=== PATIENT | male | born 1960 | race African-American/Black ===

== ENCOUNTER 2018-03-21 12:28 | Emergency (ER) | payer MEDICAID ==
[~2018-03-21] VITALS: Ht 180.3 cm; Wt 86.0 kg
[~2018-03-21 12:28] MED LIST: ALLO100T PO; DOCU-138 PO; FESO4; FOLI-43 PO; METF10004 PO; MULT-1146 PO; PRED1DRO RIGHTEYE; PREG100C PO; VENL75CA55 PO; VIT B1
[2018-03-21] MEDS ORDERED: SODIUM CHLORIDE 0.9% 500 ML IV ONE ×2 (13:30→15:15)
[2018-03-21 14:02] LABS: BASOPHILS % 1.2 % (0.0-2.0); HEMATOCRIT. 31.2 % (42.0-52.0); HEMOGLOBIN. 10.3 g/dL (14.0-18.0); LYMPHOCYTES % 23.7 % (20.0-50.0); MEAN CORPUSCULAR HEMOGLOBIN 29.1 pg (28.0-32.0); MEAN CORPUSCULAR VOLUME 88.3 fL (80.0-94.0); MEAN PLATELET VOLUME 8.5 fl (7.4-10.4); MONOCYTES % 9.2 % (2.0-8.0); NEUTROPHILS % 57.9 % (40.0-76.0); PLATELET 215 x1000/uL (130-400); RED BLOOD CELL COUNT 3.53 mill/uL (4.7-6.1); RED CELL DISTRIBUTION WIDTH 16.9 % (11.6-14.6)
[2018-03-21 14:06] LABS: CHLORIDE 111 mEq/L (98-107); PROTHROMBIN TIME 10.1 sec (9.4-11.6)
[2018-03-21 14:57] LABS: *BENZODIAZEPINES SCREEN URINE NEGATIVE (NEGATIVE); *COCAINE SCREEN URINE NEGATIVE (NEGATIVE); METHADONE URINE SCREEN NEGATIVE (NEGATIVE); OPIATES URINE SCREEN PRESUMTIVE POSITIVE (NEGATIVE)
[2018-03-21 14:58] LABS: *AMPHETAMINES SCREEN URINE NEGATIVE (NEGATIVE); *BARBITURATES SCREEN URINE NEGATIVE (NEGATIVE); CANNABINOID URINE SCREEN NEGATIVE (NEGATIVE); PHENCYCLIDINE URINE SCREEN NEGATIVE (NEGATIVE)
[2018-03-21 17:10] VITALS: BP 151/67
== END 2018-03-21 17:21 | disposition home or self-care (01) ==
LOC: ER 13:00
DX: E86.0 Dehydration (principal); N17.9 Acute kidney failure, unspecified; D64.9 Anemia, unspecified; I11.0 Hypertensive heart disease with heart failure; I50.9 Heart failure, unspecified; E11.9 Type 2 diabetes mellitus without complications; D72.819 Decreased white blood cell count, unspecified; Z79.84 Long term (current) use of oral hypoglycemic drugs
CPT/HCPCS: 36415; 71045; 80048; 80305; 83880; 84484; 85025; 85610; 93005; 96360; 96361; 99285; J7040; Z7610

== ENCOUNTER 2018-06-14 22:59 | Inpatient (IN) | payer MEDICAID ==
[~2018-06-14] VITALS: Ht 180.3 cm; Wt 88.5 kg
[2018-06-14] MEDS ORDERED: ALBUTEROL (0.083%) 2.5MG/3ML NEB HHN STA (23:30)
[2018-06-14] MEDS ORDERED: IPRATROPIUM BROMIDE (0.02%) 0.5MG/2.5ML NEB HHN STA (23:30)
[2018-06-14] MEDS ORDERED: ASPIRIN 81MG TABLET PO ONE (23:30)
[2018-06-14 23:58] LABS: BASOPHILS % 1.6 % (0.0-2.0); EOSINOPHILS % 4.8 % (0.0-5.0); HEMATOCRIT. 31.8 % (42.0-52.0); HEMOGLOBIN. 10.7 g/dL (14.0-18.0); LYMPHOCYTES % 19.5 % (20.0-50.0); MEAN CORPUSCULAR HEMOGLOBIN 30.8 pg (28.0-32.0); MEAN CORPUSCULAR VOLUME 91.6 fL (80.0-94.0); MEAN PLATELET VOLUME 8.8 fl (7.4-10.4); NEUTROPHILS % 66.1 % (40.0-76.0); PLATELET 178 x1000/uL (130-400); RED BLOOD CELL COUNT 3.47 mill/uL (4.7-6.1); RED CELL DISTRIBUTION WIDTH 17.4 % (11.6-14.6)
[2018-06-15 00:08] LABS: INR 0.9; PARTIAL THROMBOPLASTIN TIME 30.1 sec (23.4-31.0); PROTHROMBIN TIME 9.3 sec (9.1-11.1)
[2018-06-15 00:15] LABS: CHLORIDE 111 mEq/L (98-107)
[2018-06-15 00:20] LABS: ETHANOL BLOOD 125 mg/dL
[2018-06-15 00:36] LABS: CLARITY URINE CLEAR (CLEAR); COLOR URINE YELLOW (YELLOW); KETONES URINE NEGATIVE (NEGATIVE); LEUKOCYTE ESTERASE URINE NEGATIVE (NEGATIVE); NITRITE URINE NEGATIVE (NEGATIVE); OCCULT BLOOD URINE NEGATIVE (NEGATIVE); PROTEIN URINE 3+ (NEGATIVE); SPECIFIC GRAVITY URINE 1.011 (1.005-1.030); UROBILINOGEN URINE 0.2 E.U./dL (0.2-1.0)
[2018-06-15] MEDS ORDERED: SODIUM CHLORIDE 0.9% 1000ML BAG (SEPSIS BOLUS) IV ONE (01:00)
[2018-06-15] MEDS ORDERED: METHYLPREDNISOLONE SOD SUCC 125 MG/2 ML VIAL IV ONE (01:00)
[2018-06-15 01:07] LABS: *AMPHETAMINES SCREEN URINE NEGATIVE (NEGATIVE); *BARBITURATES SCREEN URINE NEGATIVE (NEGATIVE); CANNABINOID URINE SCREEN NEGATIVE (NEGATIVE); METHADONE URINE SCREEN NEGATIVE (NEGATIVE); OPIATES URINE SCREEN NEGATIVE (NEGATIVE); PHENCYCLIDINE URINE SCREEN NEGATIVE (NEGATIVE)
[2018-06-15 01:08] LABS: *BENZODIAZEPINES SCREEN URINE NEGATIVE (NEGATIVE); *COCAINE SCREEN URINE NEGATIVE (NEGATIVE)
[2018-06-15] MEDS ORDERED: CALCIUM GLUCONATE 100MG/ML 10ML VIAL IV ONE (01:15)
[2018-06-15] MEDS ORDERED: ACETAMINOPHEN 500MG TABLET PO ONE (01:30)
[2018-06-15] MEDS ORDERED: KETOROLAC 30MG/ML VIAL IV ONE (02:45)
[2018-06-15] MEDS: CALCIUM GLUCONATE 1,000 MG in DEXTROSE 5% WATER 50 ML IV SCH ×2 (03:00→05:56)
[2018-06-15 06:40] VITALS: BP 128/65
[2018-06-15 08:00] VITALS: BP 133/73
[2018-06-15] MEDS ORDERED: LOSA100T14 PO (08:54)
[2018-06-15] MEDS ORDERED: METO25TA6 PO (08:54)
[2018-06-15] MEDS ORDERED: ASPI-1158 PO (08:54)
[2018-06-15] MEDS ORDERED: HYDR-4135 PO (08:54)
[2018-06-15] MEDS ORDERED: PREG75CA PO (08:54)
[2018-06-15] MEDS ORDERED: NIFE30TA83 PO (08:54)
[2018-06-15] MEDS ORDERED: METF500T6 PO (08:54)
[2018-06-15] MEDS ORDERED: ACETAMINOPHEN 650MG/20.3ML UDC GT PRN (09:30)
[2018-06-15] MEDS ORDERED: ONDANSETRON HCL 4MG/2ML INJ IV PRN (09:30)
[2018-06-15] MEDS ORDERED: ACETAMINOPHEN 325MG TABLET PO PRN (09:30)
[2018-06-15] MEDS ORDERED: ACETAMINOPHEN 650MG SUPP PR PRN (09:30)
[2018-06-15] MEDS ORDERED: MAGNESIUM/ALUMINUM HYDROXIDE/SIMETHICONE 30ML UDC PO PRN (09:30)
[2018-06-15] MEDS: HYDROCODONE/ACETAMINOPHEN 10/325MG TABLET PO PRN ×2 (10:15→20:13)
[2018-06-15 12:00] VITALS: BP 167/58
[2018-06-15 12:40] LABS: CREATINE KINASE 510 IU/L (39-308)
[2018-06-15 12:45] LABS: CREATINE KINASE MB FRACTION 7.2 ng/mL (0.5-3.6)
[2018-06-15 12:49] LABS: FOLIC ACID (FOLATE) SERUM >20 ng/mL ng/mL (>5.38)
[2018-06-15 13:00] LABS: VITAMIN B12 SERUM 1179 pg/mL (211-911)
[2018-06-15] MEDS ORDERED: LOSARTAN POTASSIUM 100 MG TABLET PO SCH (13:30)
[2018-06-15] MEDS ORDERED: IPRATROPIUM/ALBUTEROL 0.5-3(2.5)MG/3ML NEB HHN PRN (13:45)
[2018-06-15] MEDS: FOLIC ACID 1MG TABLET PO SCH (14:20)
[2018-06-15] MEDS: MULTIVITAMINS,THER W-MINERALS TABLET PO SCH (14:20)
[2018-06-15] MEDS: METOPROLOL TARTRATE 25MG TABLET PO SCH (14:21)
[2018-06-15] MEDS: NIFEDIPINE XL 30MG TAB PO SCH (14:21)
[2018-06-15] MEDS: HYDRALAZINE HCL 50MG TABLET PO SCH (14:22)
[2018-06-15] MEDS: NICOTINE 7MG PATCH TD SCH (14:22)
[2018-06-15] MEDS: ASPIRIN 81MG TABLET PO SCH (14:22)
[2018-06-15] MEDS: PREGABALIN 75MG CAPSULE PO SCH (14:22)
[2018-06-15] MEDS ORDERED: SODIUM BICARBONATE 8.4% 1 MEQ/ML 50ML SYR IV NR ×3 (14:30→18:00)
[2018-06-15 15:21] LABS: BG BASE EXCESS -15.3 mmol/L (-2.0-2.0); BG DEOXYHEMOGLOBIN 1.9 % (0.0-5.0); BG FRACTION INSPIRED OXYGEN 21; BG HCO3 ACT 10.5 mmol/L (22.0-26.0); BG METHEMOGLOBIN 0.3 % (0.0-1.5); BG OXYGEN SATURATION 98.1 % (92.0-98.5); BG OXYHEMOGLOBIN 97.8 % (94.0-97.0); BG PCO2 25.2 mmHg (35.0-45.0); BG PH 7.239 (7.350-7.450); BG PO2 119.2 mmHg (75.0-100.0); BG SAMPLE SITE RIGHT BRACHIAL; BG TOTAL HEMOGLOBIN 10.3 g/dL (12.0-18.0); BG VENT MODE ROOM AIR
[2018-06-15 16:00] VITALS: BP 148/69
[2018-06-15 16:37] LABS: BASOPHILS % 0.3 % (0.0-2.0); HEMATOCRIT. 30.6 % (42.0-52.0); HEMOGLOBIN. 10.1 g/dL (14.0-18.0); LYMPHOCYTES % 7.6 % (20.0-50.0); MEAN CORPUSCULAR HEMOGLOBIN 30.3 pg (28.0-32.0); MEAN CORPUSCULAR VOLUME 92.2 fL (80.0-94.0); MEAN PLATELET VOLUME 9.7 fl (7.4-10.4); MONOCYTES % 3.3 % (2.0-8.0); NEUTROPHILS % 88.8 % (40.0-76.0); PLATELET 156 x1000/uL (130-400); RED BLOOD CELL COUNT 3.31 mill/uL (4.7-6.1); RED CELL DISTRIBUTION WIDTH 17.1 % (11.6-14.6)
[2018-06-15] MEDS: CITRIC ACID/SODIUM CITRATE SOLN 30ML UDC PO SCH ×2 (16:41→16:52)
[2018-06-15] MEDS ORDERED: ALBUTEROL (0.5%) 2.5MG/0.5ML NEB HHN NR (17:45)
[2018-06-15] MEDS ORDERED: DEXTROSE 50% WATER 50ML SYRINGE IV NR (17:45)
[2018-06-15] MEDS ORDERED: FUROSEMIDE 40MG/4ML VIAL IVP NR (17:45)
[2018-06-15] MEDS ORDERED: SODIUM POLYSTYRENE SULFONATE 15 G/60 ML BOT PO NR (18:30)
[2018-06-15] MEDS ORDERED: INSULIN REGULAR (HUMULIN R) UD 100 UNITS/ML SYR IV NR (18:30)
[2018-06-15] MEDS: SODIUM BICARBONATE 150 MEQ in DEXTROSE 5% WATER 1,000 ML IV SCH (19:17)
[2018-06-15 20:00] VITALS: BP 153/63
[2018-06-15] MEDS ORDERED: DEXTROSE 50% WATER 50ML SYRINGE IV PRN (20:30)
[2018-06-15] MEDS: INSULIN LISPRO 100 UNITS/ML SUBCUT SCH (21:00)
[2018-06-15] MEDS: BLOOD SUGAR DIAGNOSTIC STRIP TEST SCH (21:51)
[2018-06-15] MEDS: HYDROCODONE/ACETAMINOPHEN 5/325MG TABLET PO PRN (22:38)
[2018-06-16] VITALS (8 sets, daily range): BP systolic 154–185; BP diastolic 71–91
[2018-06-16 00:50] LABS: CREATINE KINASE 403 IU/L (39-308)
[2018-06-16 00:51] LABS: CREATINE KINASE MB FRACTION 5.9 ng/mL (0.5-3.6)
[2018-06-16] MEDS ORDERED: SODIUM POLYSTYRENE SULFONATE 15 G/60 ML BOT PO NR (02:00)
[2018-06-16] MEDS: HYDROCODONE/ACETAMINOPHEN 10/325MG TABLET PO PRN ×4 (03:02→21:59)
[2018-06-16] MEDS: SODIUM BICARBONATE 150 MEQ in DEXTROSE 5% WATER 1,000 ML IV SCH ×2 (05:10→17:30)
[2018-06-16] MEDS: BLOOD SUGAR DIAGNOSTIC STRIP TEST SCH ×4 (05:11→20:38)
[2018-06-16] MEDS: HYDRALAZINE HCL 50MG TABLET PO SCH (06:49)
[2018-06-16] MEDS: INSULIN LISPRO 100 UNITS/ML SUBCUT SCH ×4 (08:10→20:38)
[2018-06-16] MEDS: MULTIVITAMINS,THER W-MINERALS TABLET PO SCH (08:27)
[2018-06-16] MEDS: NIFEDIPINE XL 30MG TAB PO SCH (08:27)
[2018-06-16] MEDS: ASPIRIN 81MG TABLET PO SCH (08:27)
[2018-06-16] MEDS: METOPROLOL TARTRATE 25MG TABLET PO SCH (08:27)
[2018-06-16] MEDS: PREGABALIN 75MG CAPSULE PO SCH (08:27)
[2018-06-16] MEDS: CITRIC ACID/SODIUM CITRATE SOLN 30ML UDC PO SCH ×3 (08:28→18:06)
[2018-06-16] MEDS: NICOTINE 7MG PATCH TD SCH (08:28)
[2018-06-16] MEDS: FOLIC ACID 1MG TABLET PO SCH (08:28)
[2018-06-16 08:38] LABS: BASOPHILS % 0.7 % (0.0-2.0); HEMATOCRIT. 26.7 % (42.0-52.0); HEMOGLOBIN. 8.9 g/dL (14.0-18.0); LYMPHOCYTES % 17.4 % (20.0-50.0); MEAN CORPUSCULAR HEMOGLOBIN 30.6 pg (28.0-32.0); MEAN CORPUSCULAR VOLUME 91.2 fL (80.0-94.0); MONOCYTES % 7.8 % (2.0-8.0); NEUTROPHILS % 72.1 % (40.0-76.0); PLATELET 149 x1000/uL (130-400); RED BLOOD CELL COUNT 2.93 mill/uL (4.7-6.1); RED CELL DISTRIBUTION WIDTH 16.7 % (11.6-14.6)
[2018-06-16 10:44] LABS: CHLORIDE 112 mEq/L (98-107)
[2018-06-16] MEDS ORDERED: CLONIDINE 0.1MG TABLET PO NR (10:54)
[2018-06-16 10:56] LABS: PHOSPHORUS 4.3 mg/dL (2.5-4.9)
[2018-06-16 10:57] LABS: LDL CHOLESTEROL 145 mg/dL (5-100)
[2018-06-16 10:59] LABS: HDL CHOLESTEROL 44 mg/dL (40-59)
[2018-06-16] MEDS: CLONIDINE 0.1MG TABLET PO SCH ×2 (15:08→21:58)
[2018-06-16] MEDS: ATORVASTATIN CALCIUM 40MG TABLET PO SCH (21:58)
[2018-06-17] VITALS (7 sets, daily range): BP systolic 155–185; BP diastolic 74–89
[2018-06-17] MEDS: HYDROCODONE/ACETAMINOPHEN 10/325MG TABLET PO PRN ×2 (03:49→20:08)
[2018-06-17] MEDS: SODIUM BICARBONATE 150 MEQ in DEXTROSE 5% WATER 1,000 ML IV SCH (04:56)
[2018-06-17] MEDS: CLONIDINE 0.1MG TABLET PO SCH ×3 (04:57→22:51)
[2018-06-17] MEDS: BLOOD SUGAR DIAGNOSTIC STRIP TEST SCH ×4 (06:46→21:00)
[2018-06-17 07:35] LABS: BASOPHILS % 1.3 % (0.0-2.0); EOSINOPHILS % 3.4 % (0.0-5.0); HEMATOCRIT. 26.4 % (42.0-52.0); HEMOGLOBIN. 9.1 g/dL (14.0-18.0); LYMPHOCYTES % 22.6 % (20.0-50.0); MEAN CORPUSCULAR VOLUME 90.2 fL (80.0-94.0); MEAN PLATELET VOLUME 9.7 fl (7.4-10.4); MONOCYTES % 8.4 % (2.0-8.0); NEUTROPHILS % 64.3 % (40.0-76.0); PLATELET 143 x1000/uL (130-400); RED BLOOD CELL COUNT 2.93 mill/uL (4.7-6.1)
[2018-06-17 07:36] LABS: CHLORIDE 107 mEq/L (98-107)
[2018-06-17 07:42] LABS: PHOSPHORUS 3.8 mg/dL (2.5-4.9)
[2018-06-17] MEDS: INSULIN LISPRO 100 UNITS/ML SUBCUT SCH ×4 (08:10→20:38)
[2018-06-17] MEDS: CITRIC ACID/SODIUM CITRATE SOLN 30ML UDC PO SCH ×3 (09:03→17:32)
[2018-06-17] MEDS: NIFEDIPINE XL 30MG TAB PO SCH (09:03)
[2018-06-17] MEDS: PREGABALIN 75MG CAPSULE PO SCH (09:03)
[2018-06-17] MEDS: MULTIVITAMINS,THER W-MINERALS TABLET PO SCH (09:03)
[2018-06-17] MEDS: FOLIC ACID 1MG TABLET PO SCH (09:03)
[2018-06-17] MEDS: ASPIRIN 81MG TABLET PO SCH (09:03)
[2018-06-17] MEDS: NICOTINE 7MG PATCH TD SCH (09:03)
[2018-06-17] MEDS: METOPROLOL TARTRATE 25MG TABLET PO SCH (09:03)
[2018-06-17] MEDS: HYDRALAZINE HCL 50MG TABLET PO SCH (09:03)
[2018-06-17] MEDS: HYDROCODONE/ACETAMINOPHEN 5/325MG TABLET PO PRN (11:46)
[2018-06-17] MEDS: PANTOPRAZOLE 40MG DR TABLET PO SCH (12:47)
[2018-06-17] MEDS ORDERED: MAGNESIUM 2 G PREMIX 50 ML IV NR (18:00)
[2018-06-17] MEDS: ATORVASTATIN CALCIUM 40MG TABLET PO SCH (22:51)
[2018-06-17] MEDS ORDERED: CLONIDINE 0.1MG TABLET PO PRN (23:15)
[2018-06-18] VITALS: BP 152/74
[2018-06-18] MEDS: ZOLPIDEM TARTRATE 5MG TABLET PO PRN ×2 (02:01→21:21)
[2018-06-18] MEDS: HYDROCODONE/ACETAMINOPHEN 10/325MG TABLET PO PRN ×3 (02:02→21:21)
[2018-06-18 04:00] VITALS: BP 148/72
[2018-06-18] MEDS: CLONIDINE 0.1MG TABLET PO SCH ×3 (06:15→21:20)
[2018-06-18] MEDS: BLOOD SUGAR DIAGNOSTIC STRIP TEST SCH ×4 (06:27→21:20)
[2018-06-18 07:33] LABS: BASOPHILS % 0.7 % (0.0-2.0); EOSINOPHILS % 3.7 % (0.0-5.0); HEMATOCRIT. 28.4 % (42.0-52.0); HEMOGLOBIN. 9.5 g/dL (14.0-18.0); LYMPHOCYTES % 16.3 % (20.0-50.0); MEAN CORPUSCULAR HEMOGLOBIN 30.4 pg (28.0-32.0); MEAN CORPUSCULAR VOLUME 90.9 fL (80.0-94.0); MEAN PLATELET VOLUME 9.7 fl (7.4-10.4); MONOCYTES % 9.9 % (2.0-8.0); NEUTROPHILS % 69.4 % (40.0-76.0); PLATELET 151 x1000/uL (130-400); RED BLOOD CELL COUNT 3.13 mill/uL (4.7-6.1); RED CELL DISTRIBUTION WIDTH 16.1 % (11.6-14.6)
[2018-06-18 08:00] VITALS: BP 148/75
[2018-06-18] MEDS: INSULIN LISPRO 100 UNITS/ML SUBCUT SCH ×4 (08:10→21:00)
[2018-06-18 08:16] LABS: PHOSPHORUS 3.5 mg/dL (2.5-4.9)
[2018-06-18] MEDS: NICOTINE 7MG PATCH TD SCH (08:26)
[2018-06-18] MEDS: MULTIVITAMINS,THER W-MINERALS TABLET PO SCH (08:26)
[2018-06-18] MEDS: FOLIC ACID 1MG TABLET PO SCH (08:27)
[2018-06-18] MEDS: ASPIRIN 81MG TABLET PO SCH (08:27)
[2018-06-18] MEDS: METOPROLOL TARTRATE 25MG TABLET PO SCH (08:27)
[2018-06-18] MEDS: PREGABALIN 75MG CAPSULE PO SCH (08:27)
[2018-06-18] MEDS: PANTOPRAZOLE 40MG DR TABLET PO SCH (08:28)
[2018-06-18] MEDS: HYDRALAZINE HCL 50MG TABLET PO SCH (08:28)
[2018-06-18] MEDS: NIFEDIPINE XL 30MG TAB PO SCH (08:28)
[2018-06-18] MEDS: CITRIC ACID/SODIUM CITRATE SOLN 30ML UDC PO SCH (08:31)
[2018-06-18 12:00] VITALS: BP 150/75
[2018-06-18] MEDS: HYDROCODONE/ACETAMINOPHEN 5/325MG TABLET PO PRN (13:57)
[2018-06-18 20:00] VITALS: BP 172/73
[2018-06-18] MEDS: ATORVASTATIN CALCIUM 40MG TABLET PO SCH (21:20)
[2018-06-19] VITALS: BP 157/71
[2018-06-19 04:00] VITALS: BP 148/72
[2018-06-19] MEDS: CLONIDINE 0.1MG TABLET PO SCH ×3 (06:42→20:56)
[2018-06-19 07:21] LABS: BASOPHILS % 0.8 % (0.0-2.0); EOSINOPHILS % 3.6 % (0.0-5.0); HEMATOCRIT. 29.6 % (42.0-52.0); HEMOGLOBIN. 10.4 g/dL (14.0-18.0); LYMPHOCYTES % 15.8 % (20.0-50.0); MEAN CORPUSCULAR VOLUME 90.9 fL (80.0-94.0); MEAN PLATELET VOLUME 9.9 fl (7.4-10.4); MONOCYTES % 11.9 % (2.0-8.0); NEUTROPHILS % 67.9 % (40.0-76.0); PLATELET 160 x1000/uL (130-400); RED BLOOD CELL COUNT 3.25 mill/uL (4.7-6.1); RED CELL DISTRIBUTION WIDTH 15.9 % (11.6-14.6)
[2018-06-19] MEDS: BLOOD SUGAR DIAGNOSTIC STRIP TEST SCH ×4 (07:40→20:58)
[2018-06-19 08:00] VITALS: BP 147/78
[2018-06-19] MEDS: NICOTINE 7MG PATCH TD SCH (08:00)
[2018-06-19] MEDS: NIFEDIPINE XL 30MG TAB PO SCH (08:01)
[2018-06-19] MEDS: PREGABALIN 75MG CAPSULE PO SCH (08:01)
[2018-06-19] MEDS: ASPIRIN 81MG TABLET PO SCH (08:01)
[2018-06-19] MEDS: MULTIVITAMINS,THER W-MINERALS TABLET PO SCH (08:01)
[2018-06-19] MEDS: FOLIC ACID 1MG TABLET PO SCH (08:01)
[2018-06-19] MEDS: HYDRALAZINE HCL 50MG TABLET PO SCH (08:01)
[2018-06-19] MEDS: METOPROLOL TARTRATE 25MG TABLET PO SCH (08:01)
[2018-06-19] MEDS: PANTOPRAZOLE 40MG DR TABLET PO SCH (08:01)
[2018-06-19] MEDS: INSULIN LISPRO 100 UNITS/ML SUBCUT SCH ×4 (08:06→20:58)
[2018-06-19] MEDS: HYDROCODONE/ACETAMINOPHEN 10/325MG TABLET PO PRN ×3 (08:07→20:56)
[2018-06-19 09:03] LABS: PHOSPHORUS 2.8 mg/dL (2.5-4.9)
[2018-06-19 12:00] VITALS: BP 145/75
[2018-06-19 16:00] VITALS: BP 148/72
[2018-06-19 19:44] VITALS: BP 168/84
[2018-06-19] MEDS: AMLODIPINE 5MG TABLET PO SCH (20:54)
[2018-06-19] MEDS: ATORVASTATIN CALCIUM 40MG TABLET PO SCH (20:56)
[2018-06-20] VITALS (7 sets, daily range): BP systolic 116–179; BP diastolic 60–90
[2018-06-20] MEDS: HYDROCODONE/ACETAMINOPHEN 10/325MG TABLET PO PRN ×5 (03:23→23:08)
[2018-06-20] MEDS: CLONIDINE 0.1MG TABLET PO SCH ×3 (05:32→20:48)
[2018-06-20 06:13] LABS: BASOPHILS % 0.8 % (0.0-2.0); EOSINOPHILS % 5.3 % (0.0-5.0); LYMPHOCYTES % 16.6 % (20.0-50.0); MEAN CORPUSCULAR HEMOGLOBIN 30.4 pg (28.0-32.0); MEAN CORPUSCULAR VOLUME 91.4 fL (80.0-94.0); MEAN PLATELET VOLUME 9.8 fl (7.4-10.4); MONOCYTES % 11.9 % (2.0-8.0); NEUTROPHILS % 65.4 % (40.0-76.0); PLATELET 166 x1000/uL (130-400); RED BLOOD CELL COUNT 3.28 mill/uL (4.7-6.1); RED CELL DISTRIBUTION WIDTH 15.6 % (11.6-14.6)
[2018-06-20 06:42] LABS: PHOSPHORUS 3.3 mg/dL (2.5-4.9)
[2018-06-20] MEDS: BLOOD SUGAR DIAGNOSTIC STRIP TEST SCH ×4 (07:40→20:49)
[2018-06-20] MEDS: INSULIN LISPRO 100 UNITS/ML SUBCUT SCH ×4 (08:10→20:51)
[2018-06-20] MEDS: PANTOPRAZOLE 40MG DR TABLET PO SCH (08:25)
[2018-06-20] MEDS: MULTIVITAMINS,THER W-MINERALS TABLET PO SCH (08:25)
[2018-06-20] MEDS: FOLIC ACID 1MG TABLET PO SCH (08:25)
[2018-06-20] MEDS: ASPIRIN 81MG TABLET PO SCH (08:25)
[2018-06-20] MEDS: AMLODIPINE 5MG TABLET PO SCH (08:25)
[2018-06-20] MEDS: HYDRALAZINE HCL 50MG TABLET PO SCH (08:25)
[2018-06-20] MEDS: NICOTINE 7MG PATCH TD SCH (08:25)
[2018-06-20] MEDS: METOPROLOL TARTRATE 25MG TABLET PO SCH ×2 (08:26→20:48)
[2018-06-20] MEDS: PREGABALIN 75MG CAPSULE PO SCH (08:26)
[2018-06-20] MEDS: NIFEDIPINE XL 30MG TAB PO SCH ×2 (09:43→20:48)
[2018-06-20] MEDS ORDERED: MAGNESIUM SULFATE 2 GM in DEXTROSE 5% WATER 50 ML IV NR (10:00)
[2018-06-20] MEDS: ATORVASTATIN CALCIUM 40MG TABLET PO SCH (20:47)
[2018-06-20] MEDS: HYDRALAZINE HCL 100MG TABLET PO SCH (20:48)
[2018-06-21 00:05] VITALS: BP 149/51
[2018-06-21 04:00] VITALS: BP 126/74
[2018-06-21] MEDS: HYDROCODONE/ACETAMINOPHEN 10/325MG TABLET PO PRN ×3 (04:34→13:10)
[2018-06-21] MEDS: CLONIDINE 0.1MG TABLET PO SCH ×2 (05:42→13:09)
[2018-06-21] MEDS: BLOOD SUGAR DIAGNOSTIC STRIP TEST SCH ×2 (07:30→11:50)
[2018-06-21] MEDS: INSULIN LISPRO 100 UNITS/ML SUBCUT SCH ×2 (07:30→11:50)
[2018-06-21 07:34] LABS: EOSINOPHILS % 5.2 % (0.0-5.0); HEMATOCRIT. 27.9 % (42.0-52.0); HEMOGLOBIN. 9.5 g/dL (14.0-18.0); LYMPHOCYTES % 17.7 % (20.0-50.0); MEAN CORPUSCULAR HEMOGLOBIN 30.8 pg (28.0-32.0); MEAN CORPUSCULAR VOLUME 90.3 fL (80.0-94.0); MEAN PLATELET VOLUME 9.8 fl (7.4-10.4); MONOCYTES % 14.8 % (2.0-8.0); NEUTROPHILS % 61.3 % (40.0-76.0); PLATELET 178 x1000/uL (130-400); RED BLOOD CELL COUNT 3.09 mill/uL (4.7-6.1); RED CELL DISTRIBUTION WIDTH 15.8 % (11.6-14.6)
[2018-06-21 08:00] VITALS: BP 141/74
[2018-06-21 08:05] LABS: PHOSPHORUS 3.9 mg/dL (2.5-4.9)
[2018-06-21] MEDS: NICOTINE 7MG PATCH TD SCH (08:57)
[2018-06-21] MEDS: HYDRALAZINE HCL 100MG TABLET PO SCH (08:58)
[2018-06-21] MEDS: FOLIC ACID 1MG TABLET PO SCH (08:58)
[2018-06-21] MEDS: MULTIVITAMINS,THER W-MINERALS TABLET PO SCH (08:58)
[2018-06-21] MEDS: NIFEDIPINE XL 30MG TAB PO SCH (08:58)
[2018-06-21] MEDS: METOPROLOL TARTRATE 25MG TABLET PO SCH (08:59)
[2018-06-21] MEDS: ASPIRIN 81MG TABLET PO SCH (08:59)
[2018-06-21] MEDS: PREGABALIN 75MG CAPSULE PO SCH (09:03)
[2018-06-21] MEDS: PANTOPRAZOLE 40MG DR TABLET PO SCH (09:23)
[2018-06-21] MEDS ORDERED: SODIUM CHLORIDE 0.9% 1,000 ML IV SCH (10:00)
[2018-06-21] MEDS ORDERED: SODIUM POLYSTYRENE SULFONATE 15 G/60 ML BOT PO NR (11:00)
[2018-06-21] MEDS ORDERED: NICO-786 TD (11:18)
[2018-06-21] MEDS ORDERED: LIP40 PO (11:18)
[2018-06-21] MEDS ORDERED: PREG75CA PO (11:18)
[2018-06-21] MEDS ORDERED: METO25TA6 PO (11:18)
[2018-06-21] MEDS ORDERED: HYDR100T26 PO (11:18)
[2018-06-21] MEDS ORDERED: FOLI-43 PO (11:18)
[2018-06-21] MEDS ORDERED: NIFE30TA83 PO (11:18)
[2018-06-21] MEDS ORDERED: PANT40TA4 PO (11:18)
[2018-06-21] MEDS ORDERED: ASPI-1160 PO (11:18)
[2018-06-21 12:00] VITALS: BP 160/75
[2018-06-21 12:28] VITALS: BP 149/71
[2018-06-21 16:00] VITALS: BP 126/66
[2018-06-22] MEDS ORDERED: FAMOTIDINE 20MG TABLET PO SCH (09:00)
== END 2018-06-21 16:59 | disposition home or self-care (01) | DRG 282 ==
LOC: ER 22:59 → 7WST 06-15 01:04 → EDBEDREQ 06-15 01:06 → EDBEDREQTM 06-15 01:06 → ENRESERV 06-15 04:32
PROVIDERS: ADMIT Internal Medicine; ATTEND Internal Medicine
DX: K85.90 Acute pancreatitis without necrosis or infection, unspecified (principal); N17.9 Acute kidney failure, unspecified; E11.22 Type 2 diabetes mellitus with diabetic chronic kidney disease; E87.2 Acidosis; M62.82 Rhabdomyolysis; E83.42 Hypomagnesemia; E87.5 Hyperkalemia; D50.9 Iron deficiency anemia, unspecified; E78.5 Hyperlipidemia, unspecified; E87.1 Hypo-osmolality and hyponatremia; E87.8 Other disorders of electrolyte and fluid balance, not elsewhere classified; G47.00 Insomnia, unspecified; K80.20 Calculus of gallbladder without cholecystitis without obstruction; M10.9 Gout, unspecified; G90.8 Other disorders of autonomic nervous system; I95.1 Orthostatic hypotension; N18.5 Chronic kidney disease, stage 5; F17.210 Nicotine dependence, cigarettes, uncomplicated; K13.70 Unspecified lesions of oral mucosa; I13.11 Hypertensive heart and chronic kidney disease without heart failure, with stage 5 chronic kidney disease, or end stage renal disease; J32.9 Chronic sinusitis, unspecified; J44.9 Chronic obstructive pulmonary disease, unspecified; Z86.73 Personal history of transient ischemic attack (TIA), and cerebral infarction without residual deficits; Z71.6 Tobacco abuse counseling; Z82.49 Family history of ischemic heart disease and other diseases of the circulatory system; Z83.3 Family history of diabetes mellitus; Z79.84 Long term (current) use of oral hypoglycemic drugs; Z79.899 Other long term (current) drug therapy
CPT/HCPCS: 36415; 36600; 70551; 71045; 76700; 80048; 80053; 80061; 80305; 81003; 82375; 82550; 82553; 82607; 82746; 82805; 82962; 83036; 83690; 83735; 83880; 84100; 84439; 84443; 84481; 84484; 85025; 85610; 85730; 93005; 93306; 93880; 93970; 94640; 96361; 96365; 96375; 97116; 97162; 99285; 99406; G0482; J0610; J1815; J1885; J1940; J2405; J2930; J3475; J3490; J7030; J7050; J7060; J7070; J7611; J7620

== ENCOUNTER 2018-08-18 19:33 | Inpatient (IN) | payer MEDICAID ==
[~2018-08-18] VITALS: Ht 180.3 cm; Wt 88.5 kg
[~2018-08-18 19:33] MED LIST changes: +ASPI-1160 PO; -DOCU-138 PO; -FESO4; +HYDR100T26 PO; +LIP40 PO; +METF-416 PO; -METF10004 PO; +METO25TA6 PO; -MULT-1146 PO; +NICO-786 TD; +NIFE30TA83 PO; +PANT40TA4 PO; -PRED1DRO RIGHTEYE; -PREG100C PO; +PREG75CA PO; -VENL75CA55 PO; -VIT B1
[2018-08-18] MEDS ORDERED: ASPIRIN 325MG EC TABLET PO ONE (20:30)
[2018-08-18] MEDS ORDERED: ONDANSETRON HCL 4MG/2ML INJ IV STA (21:10)
[2018-08-18 21:33] LABS: BASOPHILS % 1.1 % (0.0-2.0); EOSINOPHILS % 2.2 % (0.0-5.0); HEMATOCRIT. 25.5 % (42.0-52.0); HEMOGLOBIN. 8.2 g/dL (14.0-18.0); LYMPHOCYTES % 18.4 % (20.0-50.0); MEAN CORPUSCULAR HEMOGLOBIN 29.5 pg (28.0-32.0); MEAN CORPUSCULAR VOLUME 91.4 fL (80.0-94.0); MEAN PLATELET VOLUME 9.7 fl (7.4-10.4); MONOCYTES % 6.5 % (2.0-8.0); NEUTROPHILS % 71.8 % (40.0-76.0); PLATELET 228 x1000/uL (130-400); RED BLOOD CELL COUNT 2.79 mill/uL (4.7-6.1); RED CELL DISTRIBUTION WIDTH 17.1 % (11.6-14.6)
[2018-08-18 23:56] LABS: CHLORIDE 108 mEq/L (98-107)
[2018-08-19] MEDS ORDERED: CEFTRIAXONE 1 G PREMIX 50 ML IV ONE (00:30)
[2018-08-19] MEDS ORDERED: AZITHROMYCIN 500 MG in DEXT 5% WATER 250 ML IV ONE (00:30)
[2018-08-19] MEDS ORDERED: FUROSEMIDE 40MG/4ML VIAL IVP NR (02:00)
[2018-08-19] MEDS: HYDROCODONE/ACETAMINOPHEN 10/325MG TABLET PO PRN ×3 (07:48→23:44)
[2018-08-19] MEDS ORDERED: DEXTROSE 50% WATER 50ML SYRINGE IV PRN ×2 (13:45→18:30)
[2018-08-19] MEDS ORDERED: IPRATROPIUM/ALBUTEROL 0.5-3(2.5)MG/3ML NEB INH PRN (13:45)
[2018-08-19] MEDS ORDERED: GUAIFENESIN 200MG/10ML SUGAR FREE UDC PO PRN (13:45)
[2018-08-19] MEDS ORDERED: CLONIDINE 0.1MG TABLET PO PRN (13:45)
[2018-08-19 16:30] VITALS: BP 186/85
[2018-08-19] MEDS: HYDRALAZINE 20MG/ML VIAL IV PRN ×2 (17:10→21:16)
[2018-08-19] MEDS ORDERED: BLOOD SUGAR DIAGNOSTIC STRIP TEST SCH (17:20)
[2018-08-19] MEDS ORDERED: LEVOFLOXACIN 500MG PREMIX 100 ML IV NR (18:00)
[2018-08-19] MEDS: NIFEDIPINE XL 30MG TAB PO SCH (18:38)
[2018-08-19 20:00] VITALS: BP 200/68
[2018-08-19 20:02] VITALS: BP 200/68
[2018-08-19] MEDS: INSULIN LISPRO 100 UNITS/ML SUBCUT SCH (21:00)
[2018-08-19] MEDS: BLOOD SUGAR DIAGNOSTIC STRIP TEST SCH (21:13)
[2018-08-19] MEDS: SODIUM CHLORIDE 0.9% INJ 3ML FLUSH IVF SCH (21:14)
[2018-08-19] MEDS: ACETAMINOPHEN 325MG TABLET PO PRN (21:16)
[2018-08-19] MEDS: HYDRALAZINE HCL 100MG TABLET PO SCH (21:29)
[2018-08-19 23:04] LABS: CLARITY URINE CLEAR (CLEAR); COLOR URINE YELLOW (YELLOW); KETONES URINE NEGATIVE (NEGATIVE); LEUKOCYTE ESTERASE URINE NEGATIVE (NEGATIVE); NITRITE URINE NEGATIVE (NEGATIVE); OCCULT BLOOD URINE TRACE (NEGATIVE); PROTEIN URINE 3+ (NEGATIVE); SPECIFIC GRAVITY URINE 1.009 (1.005-1.030); UROBILINOGEN URINE 0.2 E.U./dL (0.2-1.0)
[2018-08-19] MEDS: PREGABALIN 50 MG CAPSULE PO SCH (23:30)
[2018-08-20] VITALS: BP 156/73
[2018-08-20] MEDS ORDERED: NIFE20CA PO (00:59)
[2018-08-20] MEDS ORDERED: LOSA100T14 PO (00:59)
[2018-08-20] MEDS ORDERED: HYDR-4001 PO (00:59)
[2018-08-20] MEDS ORDERED: ATOR40TA70 PO (00:59)
[2018-08-20] MEDS ORDERED: PREG75CA PO (00:59)
[2018-08-20 04:00] VITALS: BP 182/79
[2018-08-20] MEDS: SODIUM CHLORIDE 0.9% INJ 3ML FLUSH IVF SCH ×3 (05:44→21:36)
[2018-08-20] MEDS: HYDRALAZINE HCL 100MG TABLET PO SCH ×3 (05:45→21:35)
[2018-08-20] MEDS: HYDROCODONE/ACETAMINOPHEN 10/325MG TABLET PO PRN ×3 (05:45→21:35)
[2018-08-20] MEDS: BLOOD SUGAR DIAGNOSTIC STRIP TEST SCH ×4 (06:28→20:37)
[2018-08-20 06:43] LABS: BASOPHILS % 0.8 % (0.0-2.0); EOSINOPHILS % 2.6 % (0.0-5.0); HEMATOCRIT. 23.9 % (42.0-52.0); HEMOGLOBIN. 8.1 g/dL (14.0-18.0); LYMPHOCYTES % 14.7 % (20.0-50.0); MEAN CORPUSCULAR HEMOGLOBIN 29.7 pg (28.0-32.0); MEAN CORPUSCULAR VOLUME 88.1 fL (80.0-94.0); MEAN PLATELET VOLUME 9.7 fl (7.4-10.4); NEUTROPHILS % 74.9 % (40.0-76.0); PLATELET 157 x1000/uL (130-400); RED BLOOD CELL COUNT 2.71 mill/uL (4.7-6.1); RED CELL DISTRIBUTION WIDTH 16.3 % (11.6-14.6)
[2018-08-20 07:29] LABS: CHLORIDE 109 mEq/L (98-107)
[2018-08-20 07:35] LABS: PHOSPHORUS 3.1 mg/dL (2.5-4.9)
[2018-08-20] MEDS: INSULIN LISPRO 100 UNITS/ML SUBCUT SCH ×4 (07:42→20:38)
[2018-08-20 08:00] VITALS: BP 160/68
[2018-08-20] MEDS: NIFEDIPINE XL 30MG TAB PO SCH ×2 (08:07→17:43)
[2018-08-20] MEDS ORDERED: INFLUENZA VIRUS VACCINE(AFLURIA) 0.5ML SYR IM ONE (09:00)
[2018-08-20] MEDS ORDERED: PNEUMOCOCCAL 23-VAL P-SAC VAC 0.5 ML IM ONE (09:00)
[2018-08-20 09:40] VITALS: BP 158/79
[2018-08-20] MEDS ORDERED: MAGNESIUM 2 G PREMIX 50 ML IV SCH (11:30)
[2018-08-20 20:00] VITALS: BP 170/82
[2018-08-20] MEDS: PREGABALIN 50 MG CAPSULE PO SCH (20:34)
[2018-08-20] MEDS: METOPROLOL TARTRATE 25MG TABLET PO SCH (20:34)
[2018-08-21] VITALS: BP 133/54
[2018-08-21 00:03] LABS: *AMPHETAMINES SCREEN URINE NEGATIVE (NEGATIVE); *BARBITURATES SCREEN URINE NEGATIVE (NEGATIVE); *BENZODIAZEPINES SCREEN URINE NEGATIVE (NEGATIVE); *COCAINE SCREEN URINE NEGATIVE (NEGATIVE)
[2018-08-21 00:04] LABS: CANNABINOID URINE SCREEN NEGATIVE (NEGATIVE); METHADONE URINE SCREEN NEGATIVE (NEGATIVE); OPIATES URINE SCREEN PRESUMTIVE POSITIVE (NEGATIVE); PHENCYCLIDINE URINE SCREEN NEGATIVE (NEGATIVE)
[2018-08-21] MEDS: ACETAMINOPHEN 325MG TABLET PO PRN (03:01)
[2018-08-21 04:00] VITALS: BP 164/77
[2018-08-21] MEDS: HYDROCODONE/ACETAMINOPHEN 10/325MG TABLET PO PRN ×2 (04:11→10:11)
[2018-08-21] MEDS: SODIUM CHLORIDE 0.9% INJ 3ML FLUSH IVF SCH ×2 (06:29→14:53)
[2018-08-21] MEDS: HYDRALAZINE HCL 100MG TABLET PO SCH ×2 (06:29→14:53)
[2018-08-21] MEDS: BLOOD SUGAR DIAGNOSTIC STRIP TEST SCH ×2 (06:31→12:27)
[2018-08-21] MEDS: INSULIN LISPRO 100 UNITS/ML SUBCUT SCH ×2 (06:33→12:27)
[2018-08-21 08:00] VITALS: BP 132/62
[2018-08-21] MEDS: METOPROLOL TARTRATE 25MG TABLET PO SCH (08:22)
[2018-08-21] MEDS: NIFEDIPINE XL 30MG TAB PO SCH (08:23)
[2018-08-21 11:10] LABS: BASOPHILS % 0.6 % (0.0-2.0); EOSINOPHILS % 2.5 % (0.0-5.0); HEMATOCRIT. 25.3 % (42.0-52.0); HEMOGLOBIN. 8.5 g/dL (14.0-18.0); LYMPHOCYTES % 11.3 % (20.0-50.0); MEAN CORPUSCULAR HEMOGLOBIN 29.4 pg (28.0-32.0); MEAN CORPUSCULAR VOLUME 87.7 fL (80.0-94.0); MEAN PLATELET VOLUME 8.9 fl (7.4-10.4); MONOCYTES % 8.1 % (2.0-8.0); NEUTROPHILS % 77.5 % (40.0-76.0); PLATELET 165 x1000/uL (130-400); RED BLOOD CELL COUNT 2.89 mill/uL (4.7-6.1); RED CELL DISTRIBUTION WIDTH 16.2 % (11.6-14.6)
[2018-08-21 12:00] VITALS: BP 142/62
[2018-08-21 15:42] VITALS: BP 62/142
[2018-08-21] MEDS ORDERED: LEVOFLOXACIN 250MG PREMIX 50 ML IV SCH (18:00)
== END 2018-08-21 17:10 | disposition home or self-care (01) | DRG 194 ==
LOC: ER 19:33 → EDBEDREQDT 08-19 00:23 → EDBEDREQTM 08-19 00:23 → EDBEDREQ 08-19 00:23 → ENRESERV 08-19 15:22 → 6WST 08-19 16:02
PROVIDERS: ADMIT Internal Medicine; ATTEND Internal Medicine
DX: I13.0 Hypertensive heart and chronic kidney disease with heart failure and stage 1 through stage 4 chronic kidney disease, or unspecified chronic kidney disease (principal); E11.22 Type 2 diabetes mellitus with diabetic chronic kidney disease; E11.42 Type 2 diabetes mellitus with diabetic polyneuropathy; E87.2 Acidosis; N17.9 Acute kidney failure, unspecified; N18.4 Chronic kidney disease, stage 4 (severe); I50.33 Acute on chronic diastolic (congestive) heart failure; M10.9 Gout, unspecified; D63.8 Anemia in other chronic diseases classified elsewhere; E78.5 Hyperlipidemia, unspecified; E87.5 Hyperkalemia; F17.200 Nicotine dependence, unspecified, uncomplicated; J44.9 Chronic obstructive pulmonary disease, unspecified; Z82.49 Family history of ischemic heart disease and other diseases of the circulatory system; Z83.3 Family history of diabetes mellitus; Z86.73 Personal history of transient ischemic attack (TIA), and cerebral infarction without residual deficits; Z79.82 Long term (current) use of aspirin; Z79.899 Other long term (current) drug therapy
CPT/HCPCS: 36415; 71045; 76770; 80048; 80305; 82570; 82962; 83605; 83735; 83880; 84100; 84156; 84484; 90686; 90732; 93005; 93306; 99285; C1893; J0360; J0456; J0696; J1815; J1940; J1956; J3475; J7040; J7060

== ENCOUNTER 2018-11-01 20:25 | Emergency (ER) | payer MEDICAID ==
[~2018-11-01] VITALS: Ht 175.3 cm; Wt 126.0 kg
[~2018-11-01 20:25] MED LIST changes: -ALLO100T PO; -METF-416 PO
[2018-11-01 20:49] VITALS: BP 164/87
== END 2018-11-01 22:45 | disposition left against medical advice (07) ==
LOC: ER 21:12
DX: Z53.21 Procedure and treatment not carried out due to patient leaving prior to being seen by health care provider (principal)

== ENCOUNTER 2018-12-08 06:48 | Inpatient (IN) | payer MEDICAID ==
[~2018-12-08] VITALS: Ht 180.3 cm; Wt 84.8 kg
[2018-12-08 08:31] LABS: BASOPHILS % 0.9 % (0.0-2.0); HEMOGLOBIN. 7.2 g/dL (14.0-18.0); MEAN CORPUSCULAR HEMOGLOBIN 27.6 pg (28.0-32.0); MEAN CORPUSCULAR VOLUME 83.8 fL (80.0-94.0); MEAN PLATELET VOLUME 8.6 fl (7.4-10.4); MONOCYTES % 5.7 % (2.0-8.0); NEUTROPHILS % 78.4 % (40.0-76.0); PLATELET 162 x1000/uL (130-400); RED BLOOD CELL COUNT 2.62 mill/uL (4.7-6.1); RED CELL DISTRIBUTION WIDTH 19.2 % (11.6-14.6)
[2018-12-08 08:37] LABS: CHLORIDE 115 mEq/L (98-107)
[2018-12-08 08:44] LABS: ETHANOL BLOOD 45 mg/dL
[2018-12-08] MEDS ORDERED: PANTOPRAZOLE SODIUM 40 MG/VIAL IV ONE (09:45)
[2018-12-08 10:35] LABS: CLARITY URINE CLOUDY (CLEAR); COLOR URINE YELLOW (YELLOW); KETONES URINE NEGATIVE (NEGATIVE); LEUKOCYTE ESTERASE URINE NEGATIVE (NEGATIVE); NITRITE URINE NEGATIVE (NEGATIVE); OCCULT BLOOD URINE TRACE (NEGATIVE); PROTEIN URINE 3+ (NEGATIVE); SPECIFIC GRAVITY URINE 1.014 (1.005-1.030); UROBILINOGEN URINE 0.2 E.U./dL (0.2-1.0)
[2018-12-08] MEDS ORDERED: SODIUM CHLORIDE 0.9% 1,000 ML IV SCH (15:00)
[2018-12-08] MEDS ORDERED: MAGNESIUM/ALUMINUM HYDROXIDE/SIMETHICONE 30ML UDC PO PRN (15:00)
[2018-12-08] MEDS ORDERED: DEXTROSE 50% WATER 50ML SYRINGE IV PRN (15:00)
[2018-12-08] MEDS ORDERED: ACETAMINOPHEN 325MG TABLET PO PRN (15:00)
[2018-12-08 15:38] LABS: TOTAL IRON BINDING CAPACITY 310 ug/dL (250-450)
[2018-12-08] MEDS: INSULIN LISPRO 100 UNITS/ML SUBCUT SCH ×2 (18:00→21:00)
[2018-12-08] MEDS: BLOOD SUGAR DIAGNOSTIC STRIP TEST SCH ×2 (18:21→21:00)
[2018-12-08 18:30] VITALS: BP 183/91
[2018-12-08] MEDS: CLONIDINE 0.1MG TABLET PO PRN (18:37)
[2018-12-08] MEDS: HYDROCODONE/ACETAMINOPHEN 5/325MG TABLET PO PRN ×2 (18:48→23:13)
[2018-12-08] MEDS: PREGABALIN 50 MG CAPSULE PO SCH (18:48)
[2018-12-08] MEDS ORDERED: LEVOFLOXACIN 250MG PREMIX 50 ML IV SCH (19:15)
[2018-12-08] MEDS ORDERED: LEVAQUIN XX SCH (19:15)
[2018-12-08 20:00] VITALS: BP_SYST 170; BP_SYST 174; BP_DIAS 81; BP_DIAS 90
[2018-12-08] MEDS ORDERED: LEVOFLOXACIN 500MG PREMIX 100 ML IV NR (21:00)
[2018-12-08] MEDS: HYDRALAZINE HCL 50MG TABLET PO SCH (22:19)
[2018-12-09] MEDS: IPRATROPIUM/ALBUTEROL 0.5-3(2.5)MG/3ML NEB HHN SCH ×4 (00:54→21:30)
[2018-12-09 00:58] VITALS: BP 175/86
[2018-12-09 04:00] VITALS: BP 167/100
[2018-12-09] MEDS: HYDROCODONE/ACETAMINOPHEN 5/325MG TABLET PO PRN ×4 (06:21→23:16)
[2018-12-09] MEDS: HYDRALAZINE HCL 50MG TABLET PO SCH ×3 (06:21→22:22)
[2018-12-09] MEDS: INSULIN LISPRO 100 UNITS/ML SUBCUT SCH ×4 (06:26→21:00)
[2018-12-09] MEDS: BLOOD SUGAR DIAGNOSTIC STRIP TEST SCH ×4 (06:26→21:00)
[2018-12-09 06:37] LABS: BASOPHILS % 0.4 % (0.0-2.0); EOSINOPHILS % 1.8 % (0.0-5.0); HEMOGLOBIN. 7.7 g/dL (14.0-18.0); LYMPHOCYTES % 12.4 % (20.0-50.0); MEAN CORPUSCULAR HEMOGLOBIN 28.3 pg (28.0-32.0); MEAN CORPUSCULAR VOLUME 84.4 fL (80.0-94.0); MEAN PLATELET VOLUME 9.4 fl (7.4-10.4); MONOCYTES % 5.4 % (2.0-8.0); PLATELET 142 x1000/uL (130-400); RED BLOOD CELL COUNT 2.73 mill/uL (4.7-6.1); RED CELL DISTRIBUTION WIDTH 18.9 % (11.6-14.6)
[2018-12-09 08:00] VITALS: BP 196/96
[2018-12-09] MEDS: NIFEDIPINE XL 60MG TAB PO SCH ×2 (10:07→22:21)
[2018-12-09] MEDS: PREGABALIN 50 MG CAPSULE PO SCH (10:07)
[2018-12-09] MEDS: METOPROLOL TARTRATE 25MG TABLET PO SCH ×2 (10:08→22:22)
[2018-12-09 12:00] VITALS: BP 179/76
[2018-12-09] MEDS: CLONIDINE 0.1MG TABLET PO PRN ×2 (12:48→18:46)
[2018-12-09] MEDS: SODIUM CHLORIDE 0.9% 1,000 ML IV SCH (13:04)
[2018-12-09 16:00] VITALS: BP 164/78
[2018-12-09 17:04] LABS: CLARITY URINE CLEAR (CLEAR); COLOR URINE YELLOW (YELLOW); KETONES URINE NEGATIVE (NEGATIVE); LEUKOCYTE ESTERASE URINE NEGATIVE (NEGATIVE); NITRITE URINE NEGATIVE (NEGATIVE); OCCULT BLOOD URINE NEGATIVE (NEGATIVE); PROTEIN URINE 3+ (NEGATIVE); UROBILINOGEN URINE 0.2 E.U./dL (0.2-1.0)
[2018-12-09 20:00] VITALS: BP 162/84
[2018-12-09] MEDS: LEVOFLOXACIN 250MG PREMIX 50 ML IV SCH (22:17)
[2018-12-10] VITALS: BP 150/80
[2018-12-10] MEDS: DIPHENHYDRAMINE 50MG/ML VIAL IV PRN ×2 (03:52→20:55)
[2018-12-10 04:00] VITALS: BP 152/84
[2018-12-10] MEDS: HYDRALAZINE HCL 50MG TABLET PO SCH ×3 (05:31→22:00)
[2018-12-10 05:51] LABS: BASOPHILS % 0.4 % (0.0-2.0); EOSINOPHILS % 1.7 % (0.0-5.0); HEMATOCRIT. 24.5 % (42.0-52.0); HEMOGLOBIN. 8.1 g/dL (14.0-18.0); LYMPHOCYTES % 10.8 % (20.0-50.0); MEAN CORPUSCULAR HEMOGLOBIN 27.8 pg (28.0-32.0); MEAN CORPUSCULAR VOLUME 84.3 fL (80.0-94.0); MEAN PLATELET VOLUME 9.2 fl (7.4-10.4); MONOCYTES % 5.3 % (2.0-8.0); NEUTROPHILS % 81.8 % (40.0-76.0); PLATELET 143 x1000/uL (130-400); RED BLOOD CELL COUNT 2.91 mill/uL (4.7-6.1); RED CELL DISTRIBUTION WIDTH 19.2 % (11.6-14.6)
[2018-12-10] MEDS: INSULIN LISPRO 100 UNITS/ML SUBCUT SCH ×4 (06:05→21:00)
[2018-12-10] MEDS: BLOOD SUGAR DIAGNOSTIC STRIP TEST SCH ×4 (06:05→20:55)
[2018-12-10 07:18] LABS: PHOSPHORUS 3.7 mg/dL (2.5-4.9)
[2018-12-10] MEDS: HYDROCODONE/ACETAMINOPHEN 5/325MG TABLET PO PRN ×3 (07:34→22:40)
[2018-12-10] MEDS: ONDANSETRON HCL 4MG/2ML INJ IV PRN (07:35)
[2018-12-10 08:00] VITALS: BP 142/56
[2018-12-10] MEDS: NIFEDIPINE XL 60MG TAB PO SCH ×2 (08:45→20:55)
[2018-12-10] MEDS: METOPROLOL TARTRATE 25MG TABLET PO SCH ×2 (08:45→20:54)
[2018-12-10] MEDS: PREGABALIN 50 MG CAPSULE PO SCH (08:45)
[2018-12-10] MEDS: IPRATROPIUM/ALBUTEROL 0.5-3(2.5)MG/3ML NEB HHN SCH ×3 (08:46→21:11)
[2018-12-10] MEDS ORDERED: MAGNESIUM 4 G PREMIX 100 ML IV NR (11:00)
[2018-12-10 12:00] VITALS: BP 147/75
[2018-12-10] MEDS ORDERED: LEVOFLOXACIN 250MG PREMIX 50 ML IV SCH (14:00)
[2018-12-10 15:52] VITALS: BP 146/73
[2018-12-10] MEDS: PANTOPRAZOLE SODIUM 40 MG/VIAL IV SCH (17:26)
[2018-12-10] MEDS ORDERED: CARV12.545 MT (18:14)
[2018-12-10] MEDS ORDERED: FURO40TA5 MT (18:14)
[2018-12-10 20:00] VITALS: BP 110/71
[2018-12-10] MEDS ORDERED: TEMAZEPAM 15MG CAPSULE PO PRN (20:00)
[2018-12-10] MEDS: LEVOFLOXACIN 250MG PREMIX 50 ML IV SCH (20:55)
[2018-12-11] VITALS (7 sets, daily range): BP systolic 131–162; BP diastolic 64–79
[2018-12-11] MEDS: IPRATROPIUM/ALBUTEROL 0.5-3(2.5)MG/3ML NEB HHN SCH ×4 (02:39→20:18)
[2018-12-11] MEDS: ONDANSETRON HCL 4MG/2ML INJ IV PRN (02:56)
[2018-12-11] MEDS: HYDRALAZINE HCL 50MG TABLET PO SCH ×3 (05:58→21:04)
[2018-12-11] MEDS: PANTOPRAZOLE SODIUM 40 MG/VIAL IV SCH ×2 (06:00→17:14)
[2018-12-11] MEDS: BLOOD SUGAR DIAGNOSTIC STRIP TEST SCH ×4 (06:00→21:17)
[2018-12-11] MEDS: SODIUM CHLORIDE 0.9% 1,000 ML IV SCH (06:15)
[2018-12-11] MEDS: INSULIN LISPRO 100 UNITS/ML SUBCUT SCH ×4 (07:40→21:00)
[2018-12-11 08:11] LABS: BASOPHILS % 0.6 % (0.0-2.0); EOSINOPHILS % 2.3 % (0.0-5.0); HEMATOCRIT. 23.5 % (42.0-52.0); HEMOGLOBIN. 7.7 g/dL (14.0-18.0); LYMPHOCYTES % 7.7 % (20.0-50.0); MEAN CORPUSCULAR HEMOGLOBIN 27.9 pg (28.0-32.0); MEAN CORPUSCULAR VOLUME 84.7 fL (80.0-94.0); MEAN PLATELET VOLUME 8.5 fl (7.4-10.4); MONOCYTES % 7.1 % (2.0-8.0); NEUTROPHILS % 82.3 % (40.0-76.0); PLATELET 155 x1000/uL (130-400); RED BLOOD CELL COUNT 2.77 mill/uL (4.7-6.1); RED CELL DISTRIBUTION WIDTH 18.7 % (11.6-14.6)
[2018-12-11 08:17] LABS: PARTIAL THROMBOPLASTIN TIME 33.6 sec (23.4-31.0); PROTHROMBIN TIME 10.1 sec (9.1-11.1)
[2018-12-11 08:25] LABS: CHLORIDE 112 mEq/L (98-107)
[2018-12-11] MEDS ORDERED: PROPOFOL 200MG/20ML VIAL IV ONE (10:28)
[2018-12-11] MEDS ORDERED: LIDOCAINE HCL 1% 20ML VIAL (Pyxis) INJ ONE (10:29)
[2018-12-11] MEDS ORDERED: SIMETHICONE 40 MG/0.6 ML 30ML ONE (10:43)
[2018-12-11] MEDS ORDERED: MIDAZOLAM HCL 2 MG/2 ML VIAL ONE (11:36)
[2018-12-11] MEDS: NIFEDIPINE XL 60MG TAB PO SCH ×2 (14:07→20:48)
[2018-12-11] MEDS: PREGABALIN 50 MG CAPSULE PO SCH (14:07)
[2018-12-11] MEDS: METOPROLOL TARTRATE 25MG TABLET PO SCH ×2 (14:07→20:47)
[2018-12-11] MEDS: HYDROCODONE/ACETAMINOPHEN 5/325MG TABLET PO PRN ×2 (14:09→20:58)
[2018-12-11 15:43] LABS: HEPATITIS B SURFACE AB 33.2 mIU/mL
[2018-12-11 16:23] LABS: HEPATITIS A AB IGM NEGATIVE (NEGATIVE)
[2018-12-11] MEDS ORDERED: LEVOFLOXACIN 500MG PREMIX 100 ML IV SCH (21:00)
[2018-12-12] VITALS: BP 131/68
[2018-12-12] MEDS: IPRATROPIUM/ALBUTEROL 0.5-3(2.5)MG/3ML NEB HHN SCH ×3 (01:22→14:24)
[2018-12-12 04:00] VITALS: BP 144/58
[2018-12-12] MEDS: HYDROCODONE/ACETAMINOPHEN 5/325MG TABLET PO PRN ×2 (05:24→09:01)
[2018-12-12 06:30] LABS: BASOPHILS % 0.3 % (0.0-2.0); EOSINOPHILS % 3.7 % (0.0-5.0); HEMATOCRIT. 23.9 % (42.0-52.0); LYMPHOCYTES % 10.7 % (20.0-50.0); MEAN CORPUSCULAR HEMOGLOBIN 28.1 pg (28.0-32.0); MEAN CORPUSCULAR VOLUME 84.6 fL (80.0-94.0); MEAN PLATELET VOLUME 8.9 fl (7.4-10.4); NEUTROPHILS % 75.3 % (40.0-76.0); PLATELET 162 x1000/uL (130-400); RED BLOOD CELL COUNT 2.83 mill/uL (4.7-6.1); RED CELL DISTRIBUTION WIDTH 18.8 % (11.6-14.6)
[2018-12-12 06:39] LABS: CHLORIDE 111 mEq/L (98-107)
[2018-12-12] MEDS: BLOOD SUGAR DIAGNOSTIC STRIP TEST SCH ×2 (06:47→12:33)
[2018-12-12] MEDS: INSULIN LISPRO 100 UNITS/ML SUBCUT SCH ×2 (06:48→12:33)
[2018-12-12] MEDS: PANTOPRAZOLE SODIUM 40 MG/VIAL IV SCH (06:50)
[2018-12-12] MEDS: HYDRALAZINE HCL 50MG TABLET PO SCH (06:53)
[2018-12-12 06:55] LABS: PHOSPHORUS 4.4 mg/dL (2.5-4.9)
[2018-12-12 08:00] VITALS: BP 143/72
[2018-12-12] MEDS: NIFEDIPINE XL 60MG TAB PO SCH (08:24)
[2018-12-12] MEDS: PREGABALIN 50 MG CAPSULE PO SCH (08:24)
[2018-12-12] MEDS: METOPROLOL TARTRATE 25MG TABLET PO SCH (08:25)
[2018-12-12 12:00] VITALS: BP 143/71
[2018-12-12 14:57] VITALS: BP 143/71
[2018-12-12 16:00] VITALS: BP 124/79
[2018-12-13 13:06] LABS: ANTI-NUCLEAR ANTIBODIES DIRECT Negative (Negative)
== END 2018-12-12 16:45 | disposition home or self-care (01) | DRG 241 ==
LOC: ER 06:48 → 8WST 09:48 → ENRESERV 16:07
PROVIDERS: ADMIT Internal Medicine; ATTEND Internal Medicine
PROC: 30233N1 Transfusion of Nonautologous Red Blood Cells into Peripheral Vein, Percutaneous Approach (ICD-10-PCS; principal; 2018-12-08)
PROC: 0DB68ZX Excision of Stomach, Via Natural or Artificial Opening Endoscopic, Diagnostic (ICD-10-PCS; 2018-12-11)
DX: K29.00 Acute gastritis without bleeding (principal); J18.9 Pneumonia, unspecified organism; E11.21 Type 2 diabetes mellitus with diabetic nephropathy; I13.0 Hypertensive heart and chronic kidney disease with heart failure and stage 1 through stage 4 chronic kidney disease, or unspecified chronic kidney disease; E11.42 Type 2 diabetes mellitus with diabetic polyneuropathy; N17.9 Acute kidney failure, unspecified; N18.4 Chronic kidney disease, stage 4 (severe); I50.32 Chronic diastolic (congestive) heart failure; D50.9 Iron deficiency anemia, unspecified; F10.20 Alcohol dependence, uncomplicated; E11.22 Type 2 diabetes mellitus with diabetic chronic kidney disease; D63.8 Anemia in other chronic diseases classified elsewhere; E87.2 Acidosis; J44.0 Chronic obstructive pulmonary disease with (acute) lower respiratory infection; E78.5 Hyperlipidemia, unspecified; K76.89 Other specified diseases of liver; K80.20 Calculus of gallbladder without cholecystitis without obstruction; N40.0 Benign prostatic hyperplasia without lower urinary tract symptoms; Z86.73 Personal history of transient ischemic attack (TIA), and cerebral infarction without residual deficits; Z87.891 Personal history of nicotine dependence; Z79.82 Long term (current) use of aspirin; Z79.899 Other long term (current) drug therapy; Z82.49 Family history of ischemic heart disease and other diseases of the circulatory system; Z83.3 Family history of diabetes mellitus
CPT/HCPCS: 36415; 71045; 74018; 74176; 76700; 80048; 80320; 82270; 82390; 82570; 82728; 82962; 82977; 83036; 83540; 83550; 83735; 83935; 84100; 84156; 84300; 86038; 86706; 86709; 86803; 86850; 86900; 86920; 88305; 88312; 88313; 93005; 96361; 96374; 96375; 99285; C9113; J1200; J1815; J1956; J2250; J2405; J2704; J3475; J3490; J7030; J7050; J7620; P9016; G0480

== ENCOUNTER 2019-03-23 05:10 | Inpatient (IN) | payer MEDICAID ==
[2019-03-23] VITALS (9 sets, daily range): BP systolic 156–184; BP diastolic 76–83
[~2019-03-23] VITALS: Ht 180.3 cm; Wt 89.8 kg
[~2019-03-23 05:10] MED LIST changes: +CARV12.545 MT; +FURO40TA5 PO
[2019-03-23 06:29] LABS: BASOPHILS % 1.4 % (0.0-2.0); EOSINOPHILS % 4.6 % (0.0-5.0); LYMPHOCYTES % 22.9 % (20.0-50.0); MEAN CORPUSCULAR HEMOGLOBIN 26.1 pg (28.0-32.0); MEAN CORPUSCULAR VOLUME 79.9 fL (80.0-94.0); MEAN PLATELET VOLUME 7.2 fl (7.4-10.4); NEUTROPHILS % 60.1 % (40.0-76.0); PLATELET 112 x1000/uL (130-400); RED BLOOD CELL COUNT 2.31 mill/uL (4.7-6.1); RED CELL DISTRIBUTION WIDTH 18.7 % (11.6-14.6)
[2019-03-23 06:37] LABS: HEMATOCRIT. 18.5 % (42.0-52.0)
[2019-03-23 06:41] LABS: CHLORIDE 109 mEq/L (98-107)
[2019-03-23] MEDS ORDERED: NITROGLYCERIN OINT 1GM/INCH UDPKT TD ONE (06:45)
[2019-03-23] MEDS ORDERED: MORPHINE SULFATE 4 MG/ML CPJ (NOT FOR IM USE) IV ONE (06:45)
[2019-03-23] MEDS ORDERED: ONDANSETRON HCL 4MG/2ML INJ IV ONE (06:45)
[2019-03-23 06:49] LABS: TOTAL IRON BINDING CAPACITY 364 ug/dL (250-450)
[2019-03-23] MEDS ORDERED: FUROSEMIDE 20MG/2ML VIAL IVP ONE (07:15)
[2019-03-23] MEDS ORDERED: ONDANSETRON HCL 4MG/2ML INJ IV PRN (08:30)
[2019-03-23] MEDS ORDERED: MAGNESIUM/ALUMINUM HYDROXIDE/SIMETHICONE 30ML UDC PO PRN (08:30)
[2019-03-23] MEDS ORDERED: LORAZEPAM 2MG/ML CPJ IV PRN (08:30)
[2019-03-23] MEDS ORDERED: IPRATROPIUM/ALBUTEROL 0.5-3(2.5)MG/3ML NEB INH PRN (08:30)
[2019-03-23] MEDS ORDERED: CLONIDINE 0.1MG TABLET PO PRN (08:30)
[2019-03-23 08:48] LABS: TOTAL IRON BINDING CAPACITY 373 ug/dL (250-450)
[2019-03-23] MEDS ORDERED: AMLODIPINE 5MG TABLET PO SCH (09:00)
[2019-03-23] MEDS ORDERED: MVI, ADULT NO.1 10 ML, FOLIC ACID 1 MG, THIAMINE HCL 100 MG in SODIUM CHLORIDE 0.9% 1,0... IV SCH ×4 (10:00)
[2019-03-23] MEDS: FAMOTIDINE 20MG/2ML VIAL IV SCH (10:08)
[2019-03-23] MEDS: ACETAMINOPHEN 325MG TABLET PO PRN ×2 (10:08→22:09)
[2019-03-23] MEDS: TRAMADOL 50MG TABLET PO PRN ×2 (13:01→19:05)
[2019-03-23] MEDS: HYDRALAZINE HCL 50MG TABLET PO SCH ×2 (13:47→21:07)
[2019-03-23 14:15] LABS: BG BASE EXCESS -7.7 mmol/L (-2.0-2.0); BG CARBOXYHEMOGLOBIN 0.9 % (0.5-1.5); BG DEOXYHEMOGLOBIN 4.6 % (0.0-5.0); BG FRACTION INSPIRED OXYGEN 21; BG HCO3 ACT 17.3 mmol/L (22.0-26.0); BG OXYGEN SATURATION 95.4 % (92.0-98.5); BG OXYHEMOGLOBIN 94.5 % (94.0-97.0); BG PCO2 32.6 mmHg (35.0-45.0); BG PH 7.343 (7.350-7.450); BG PO2 87.5 mmHg (75.0-100.0); BG SAMPLE SITE RIGHT RADIAL; BG VENT MODE ROOM AIR
[2019-03-23 15:15] LABS: CLARITY URINE CLEAR (CLEAR); COLOR URINE YELLOW (YELLOW); KETONES URINE NEGATIVE (NEGATIVE); LEUKOCYTE ESTERASE URINE NEGATIVE (NEGATIVE); NITRITE URINE NEGATIVE (NEGATIVE); OCCULT BLOOD URINE NEGATIVE (NEGATIVE); PROTEIN URINE 2+ (NEGATIVE); SPECIFIC GRAVITY URINE 1.007 (1.005-1.030); UROBILINOGEN URINE 0.2 E.U./dL (0.2-1.0)
[2019-03-23] MEDS ORDERED: LIDOCAINE HCL/PF 1% 2ML VIAL ONE (15:19)
[2019-03-23 15:37] LABS: *AMPHETAMINES SCREEN URINE NEGATIVE (NEGATIVE); *BARBITURATES SCREEN URINE NEGATIVE (NEGATIVE); *BENZODIAZEPINES SCREEN URINE NEGATIVE (NEGATIVE); *COCAINE SCREEN URINE NEGATIVE (NEGATIVE)
[2019-03-23 15:38] LABS: CANNABINOID URINE SCREEN NEGATIVE (NEGATIVE); METHADONE URINE SCREEN NEGATIVE (NEGATIVE); OPIATES URINE SCREEN NEGATIVE (NEGATIVE); PHENCYCLIDINE URINE SCREEN NEGATIVE (NEGATIVE)
[2019-03-23] MEDS: CLONIDINE 0.1MG TABLET PO PRN (17:16)
[2019-03-23 19:55] LABS: PROTHROMBIN TIME 9.8 sec (9.6-11.0)
[2019-03-23 20:07] LABS: CREATINE KINASE MB FRACTION 7.2 ng/mL (0.5-3.6)
[2019-03-23] MEDS: LIDOCAINE 5% PATCH TOP SCH (20:58)
[2019-03-23] MEDS: METOPROLOL TARTRATE 50MG TABLET PO SCH (21:06)
[2019-03-23] MEDS: AMLODIPINE 5MG TABLET PO SCH (21:07)
[2019-03-23 23:31] LABS: CREATINE KINASE MB FRACTION 7.2 ng/mL (0.5-3.6)
[2019-03-24] VITALS: BP 189/86
[2019-03-24] MEDS ORDERED: AMIT25TA9 PO (00:25)
[2019-03-24] MEDS ORDERED: GABA-529 PO (00:27)
[2019-03-24] MEDS ORDERED: DOCU-138 PO (00:28)
[2019-03-24] MEDS: CLONIDINE 0.1MG TABLET PO PRN (00:45)
[2019-03-24] MEDS: TRAMADOL 50MG TABLET PO PRN ×3 (00:46→18:00)
[2019-03-24 01:36] LABS: HEMATOCRIT 25.8 % (42.0-52.0); HEMOGLOBIN 8.3 g/dL (14.0-18.0)
[2019-03-24 04:00] VITALS: BP 197/84
[2019-03-24] MEDS ORDERED: NIFEDIPINE XL 60MG TAB PO SCH (05:30)
[2019-03-24] MEDS ORDERED: HYDRALAZINE HCL 50MG TABLET PO SCH (05:30)
[2019-03-24] MEDS ORDERED: HYDROCODONE/ACETAMINOPHEN 5/325MG TABLET PO SCH (05:30)
[2019-03-24] MEDS: HYDRALAZINE HCL 50MG TABLET PO SCH (05:32)
[2019-03-24 08:00] VITALS: BP 190/81
[2019-03-24 08:00] LABS: BASOPHILS % 0.5 % (0.0-2.0); EOSINOPHILS % 3.4 % (0.0-5.0); HEMOGLOBIN. 7.5 g/dL (14.0-18.0); LYMPHOCYTES % 8.3 % (20.0-50.0); MEAN CORPUSCULAR HEMOGLOBIN 26.3 pg (28.0-32.0); MEAN CORPUSCULAR VOLUME 80.1 fL (80.0-94.0); MEAN PLATELET VOLUME 8.2 fl (7.4-10.4); MONOCYTES % 9.9 % (2.0-8.0); NEUTROPHILS % 77.9 % (40.0-76.0); PLATELET 108 x1000/uL (130-400); RED BLOOD CELL COUNT 2.87 mill/uL (4.7-6.1); RED CELL DISTRIBUTION WIDTH 17.5 % (11.6-14.6)
[2019-03-24 08:13] LABS: CHLORIDE 112 mEq/L (98-107)
[2019-03-24 08:20] LABS: PHOSPHORUS 4.4 mg/dL (2.5-4.9)
[2019-03-24] MEDS: METOPROLOL TARTRATE 50MG TABLET PO SCH (08:52)
[2019-03-24] MEDS: FAMOTIDINE 20MG/2ML VIAL IV SCH (08:52)
[2019-03-24] MEDS: AMLODIPINE 5MG TABLET PO SCH (08:52)
[2019-03-24] MEDS: LIDOCAINE 5% PATCH TOP SCH (08:54)
[2019-03-24] MEDS ORDERED: DOXAZOSIN MESYLATE 2MG TABLET PO NR (10:00)
[2019-03-24] MEDS ORDERED: METOPROLOL TARTRATE 100MG TABLET PO SCH (10:00)
[2019-03-24] MEDS ORDERED: METOPROLOL TARTRATE 50MG TABLET PO NR (10:30)
[2019-03-24] MEDS: FERROUS SULFATE 325MG TABLET PO SCH ×3 (10:55→17:15)
[2019-03-24] MEDS: FOLIC ACID/VITAMIN B COMP W-C TABLET PO SCH (10:55)
[2019-03-24 12:00] VITALS: BP 189/82
[2019-03-24] MEDS: HYDRALAZINE HCL 100MG TABLET PO SCH ×2 (13:15→21:01)
[2019-03-24 16:00] VITALS: BP 187/74
[2019-03-24] MEDS: CITRIC ACID/SODIUM CITRATE SOLN 15ML UDC PO SCH ×2 (16:47→20:49)
[2019-03-24] MEDS ORDERED: LACTULOSE 20G/30ML UDC PO PRN (19:00)
[2019-03-24 20:17] VITALS: BP 196/95
[2019-03-24] MEDS: ACETAMINOPHEN 325MG TABLET PO PRN (20:47)
[2019-03-24] MEDS: METOPROLOL TARTRATE 100MG TABLET PO SCH (20:49)
[2019-03-24] MEDS ORDERED: DOXAZOSIN MESYLATE 2MG TABLET PO SCH (21:00)
[2019-03-24] MEDS: CLONIDINE 0.2MG TABLET PO SCH (21:01)
[2019-03-25] VITALS: BP 164/84
[2019-03-25] MEDS: CLONIDINE 0.1MG TABLET PO PRN
[2019-03-25 04:00] VITALS: BP 194/99
[2019-03-25] MEDS: CLONIDINE 0.2MG TABLET PO SCH ×2 (05:00→14:46)
[2019-03-25] MEDS: HYDRALAZINE HCL 100MG TABLET PO SCH ×2 (05:01→14:39)
[2019-03-25] MEDS: TRAMADOL 50MG TABLET PO PRN ×2 (06:19)
[2019-03-25 07:58] LABS: BASOPHILS % 0.5 % (0.0-2.0); EOSINOPHILS % 1.2 % (0.0-5.0); HEMATOCRIT. 22.7 % (42.0-52.0); HEMOGLOBIN. 7.4 g/dL (14.0-18.0); MEAN CORPUSCULAR HEMOGLOBIN 26.1 pg (28.0-32.0); MEAN CORPUSCULAR VOLUME 79.7 fL (80.0-94.0); MEAN PLATELET VOLUME 8.8 fl (7.4-10.4); NEUTROPHILS % 79.3 % (40.0-76.0); PLATELET 112 x1000/uL (130-400); RED BLOOD CELL COUNT 2.85 mill/uL (4.7-6.1); RED CELL DISTRIBUTION WIDTH 17.4 % (11.6-14.6)
[2019-03-25 08:00] VITALS: BP 203/87
[2019-03-25] MEDS: FAMOTIDINE 20MG/2ML VIAL IV SCH (08:54)
[2019-03-25] MEDS: FERROUS SULFATE 325MG TABLET PO SCH ×2 (08:54→12:19)
[2019-03-25] MEDS: CITRIC ACID/SODIUM CITRATE SOLN 15ML UDC PO SCH ×2 (08:54→13:00)
[2019-03-25] MEDS: FOLIC ACID/VITAMIN B COMP W-C TABLET PO SCH (08:54)
[2019-03-25] MEDS: METOPROLOL TARTRATE 100MG TABLET PO SCH (08:55)
[2019-03-25] MEDS ORDERED: LIDOCAINE 5% PATCH TOP SCH (09:00)
[2019-03-25] MEDS ORDERED: NIFEDIPINE XL 60MG TAB PO SCH (09:00)
[2019-03-25 09:21] LABS: PHOSPHORUS 3.9 mg/dL (2.5-4.9)
[2019-03-25 12:00] VITALS: BP 192/86
[2019-03-25 13:08] VITALS: BP 192/86
[2019-03-25 14:58] LABS: HEPATITIS B SURFACE ANTIGEN NEGATIVE
[2019-03-26 08:13] LABS: *CREATININE RANDOM URINE 15.9 mg/dL (Not Estab.)
[2019-03-26 08:13] LABS: A/G RATIO 0.8 (0.7-1.7); ALBUMIN 3.1 g/dL (2.9-4.4); ALPHA-1-GLOBULIN 0.3 g/dL (0.0-0.4); ALPHA-2-GLOBULIN 0.9 g/dL (0.4-1.0); BETA GLOBULIN 1.3 g/dL (0.7-1.3); GAMMA GLOBULINS 1.3 g/dL (0.4-1.8); GLOBULIN TOTAL 3.7 g/dL (2.2-3.9); IMMUNOGLOBULIN A 497 mg/dL (90-386); IMMUNOGLOBULIN G 1219 mg/dL (700-1600); IMMUNOGLOBULIN M 63 mg/dL (20-172); M-SPIKE Not Observed g/dL (Not Observed); TOTAL PROTEIN SERUM 6.8 g/dL (6.0-8.5)
[2019-03-26] MEDS ORDERED: NIFEDIPINE XL 90MG TAB PO SCH (09:00)
[2019-03-26] MEDS ORDERED: MULT-1146 MT (15:22)
== END 2019-03-25 15:50 | disposition home or self-care (01) | DRG 663 ==
LOC: ER 05:10 → 5WST 06:42 → EDBEDREQTM 06:49 → EDBEDREQ 06:49 → ENRESERV 08:15
PROVIDERS: ADMIT Internal Medicine Geriatric Medicine; ATTEND Internal Medicine Geriatric Medicine
PROC: 30233N1 Transfusion of Nonautologous Red Blood Cells into Peripheral Vein, Percutaneous Approach (ICD-10-PCS; principal; 2019-03-23)
DX: D50.9 Iron deficiency anemia, unspecified (principal); N17.9 Acute kidney failure, unspecified; E11.22 Type 2 diabetes mellitus with diabetic chronic kidney disease; E11.40 Type 2 diabetes mellitus with diabetic neuropathy, unspecified; R07.89 Other chest pain; I13.11 Hypertensive heart and chronic kidney disease without heart failure, with stage 5 chronic kidney disease, or end stage renal disease; E44.1 Mild protein-calorie malnutrition; E87.2 Acidosis; F10.229 Alcohol dependence with intoxication, unspecified; N18.5 Chronic kidney disease, stage 5; E78.5 Hyperlipidemia, unspecified; K57.90 Diverticulosis of intestine, part unspecified, without perforation or abscess without bleeding; T39.395A Adverse effect of other nonsteroidal anti-inflammatory drugs [NSAID], initial encounter; F17.210 Nicotine dependence, cigarettes, uncomplicated; K80.20 Calculus of gallbladder without cholecystitis without obstruction; Y90.8 Blood alcohol level of 240 mg/100 ml or more; G89.29 Other chronic pain; K29.60 Other gastritis without bleeding; K76.89 Other specified diseases of liver; Z82.49 Family history of ischemic heart disease and other diseases of the circulatory system; Z68.27 Body mass index [BMI] 27.0-27.9, adult; Y92.89 Other specified places as the place of occurrence of the external cause; Z79.899 Other long term (current) drug therapy; Z86.73 Personal history of transient ischemic attack (TIA), and cerebral infarction without residual deficits; Z79.1 Long term (current) use of non-steroidal anti-inflammatories (NSAID); Z79.82 Long term (current) use of aspirin
CPT/HCPCS: 36415; 36600; 71045; 73030; 73200; 76770; 80048; 80305; 80320; 82043; 82375; 82553; 82570; 82784; 82805; 83540; 83550; 83605; 83735; 83880; 84100; 84155; 84165; 84300; 84484; 85014; 85018; 86334; 86803; 86850; 86900; 86920; 87340; 93005; 93306; 93970; 96374; 99285; J1940; J2060; J2270; J2405; J3411; J3490; J7030; P9016; G0480

== ENCOUNTER 2019-03-26 03:44 | Inpatient (IN) | payer MEDICAID ==
[~2019-03-26] VITALS: Ht 180.3 cm; Wt 89.8 kg
[2019-03-26] VITALS (7 sets, daily range): BP systolic 165–223; BP diastolic 68–123
[~2019-03-26 03:44] MED LIST changes: +AMIT25TA9 PO; +DOCU-138 PO; +GABA-529 PO
[2019-03-26] MEDS ORDERED: MORPHINE SULFATE 4 MG/ML CPJ (NOT FOR IM USE) IV STA (04:58)
[2019-03-26] MEDS ORDERED: ONDANSETRON HCL 4MG/2ML INJ IV STA (04:58)
[2019-03-26 05:41] LABS: BASOPHILS % 0.5 % (0.0-2.0); EOSINOPHILS % 0.8 % (0.0-5.0); HEMATOCRIT. 24.5 % (42.0-52.0); HEMOGLOBIN. 8.1 g/dL (14.0-18.0); LYMPHOCYTES % 7.5 % (20.0-50.0); MEAN CORPUSCULAR HEMOGLOBIN 26.2 pg (28.0-32.0); MEAN CORPUSCULAR VOLUME 79.6 fL (80.0-94.0); MEAN PLATELET VOLUME 7.3 fl (7.4-10.4); MONOCYTES % 12.4 % (2.0-8.0); NEUTROPHILS % 78.8 % (40.0-76.0); PLATELET 126 x1000/uL (130-400); RED BLOOD CELL COUNT 3.08 mill/uL (4.7-6.1); RED CELL DISTRIBUTION WIDTH 17.7 % (11.6-14.6)
[2019-03-26 05:43] LABS: CHLORIDE 110 mEq/L (98-107)
[2019-03-26] MEDS ORDERED: DOCUSATE SODIUM 100MG CAPSULE PO PRN (08:00)
[2019-03-26] MEDS ORDERED: GUAIFENESIN 200MG/10ML SUGAR FREE UDC PO PRN (08:00)
[2019-03-26] MEDS ORDERED: KETOROLAC 15MG/ML VIAL IV PRN (08:00)
[2019-03-26] MEDS ORDERED: MORPHINE SULFATE 4 MG/ML CPJ (NOT FOR IM USE) IV ONE (10:00)
[2019-03-26] MEDS ORDERED: ONDANSETRON HCL 4MG/2ML INJ IV ONE (10:00)
[2019-03-26] MEDS ORDERED: HYDRALAZINE HCL 100MG TABLET PO SCH (12:30)
[2019-03-26] MEDS: AMLODIPINE 10MG TABLET PO SCH (13:22)
[2019-03-26] MEDS: METOPROLOL TARTRATE 25MG TABLET PO SCH ×2 (13:23→21:29)
[2019-03-26] MEDS: HYDROCODONE/ACETAMINOPHEN 10/325MG TABLET PO PRN ×2 (14:20→21:29)
[2019-03-26] MEDS ORDERED: MULT-1146 MT (15:22)
[2019-03-26] MEDS: LISINOPRIL 40MG TABLET PO SCH (16:09)
[2019-03-26] MEDS: HYDRALAZINE HCL 100MG TABLET PO SCH (17:13)
[2019-03-26] MEDS: BLOOD SUGAR DIAGNOSTIC STRIP TEST SCH (20:32)
[2019-03-26] MEDS: INSULIN LISPRO 100 UNITS/ML SUBCUT SCH (20:32)
[2019-03-26] MEDS ORDERED: DEXTROSE 50% WATER 50ML SYRINGE IV PRN (21:00)
[2019-03-27] VITALS (7 sets, daily range): BP systolic 141–204; BP diastolic 66–82
[2019-03-27] MEDS: CLONIDINE 0.1MG TABLET PO PRN ×2 (00:11→15:13)
[2019-03-27] MEDS: HYDROCODONE/ACETAMINOPHEN 10/325MG TABLET PO PRN ×3 (02:19→15:14)
[2019-03-27] MEDS: INSULIN LISPRO 100 UNITS/ML SUBCUT SCH ×2 (06:54→11:57)
[2019-03-27] MEDS: BLOOD SUGAR DIAGNOSTIC STRIP TEST SCH ×3 (06:54→16:45)
[2019-03-27 07:12] LABS: BASOPHILS % 0.4 % (0.0-2.0); EOSINOPHILS % 1.3 % (0.0-5.0); HEMATOCRIT. 25.3 % (42.0-52.0); HEMOGLOBIN. 8.1 g/dL (14.0-18.0); LYMPHOCYTES % 7.5 % (20.0-50.0); MEAN CORPUSCULAR HEMOGLOBIN 25.7 pg (28.0-32.0); MEAN CORPUSCULAR VOLUME 80.4 fL (80.0-94.0); MEAN PLATELET VOLUME 7.8 fl (7.4-10.4); MONOCYTES % 11.9 % (2.0-8.0); NEUTROPHILS % 78.9 % (40.0-76.0); PLATELET 159 x1000/uL (130-400); RED BLOOD CELL COUNT 3.15 mill/uL (4.7-6.1); RED CELL DISTRIBUTION WIDTH 18.1 % (11.6-14.6)
[2019-03-27 07:32] LABS: CHLORIDE 109 mEq/L (98-107)
[2019-03-27 07:42] LABS: LDL CHOLESTEROL 163 mg/dL (5-100)
[2019-03-27 07:44] LABS: HDL CHOLESTEROL 51 mg/dL (40-59)
[2019-03-27] MEDS: AMLODIPINE 10MG TABLET PO SCH (08:26)
[2019-03-27] MEDS: HYDRALAZINE HCL 100MG TABLET PO SCH ×2 (08:26→12:19)
[2019-03-27] MEDS: METOPROLOL TARTRATE 25MG TABLET PO SCH (08:26)
[2019-03-27] MEDS: LISINOPRIL 40MG TABLET PO SCH (08:27)
[2019-03-27] MEDS ORDERED: LOSARTAN POTASSIUM 50 MG TABLET PO SCH (09:00)
== END 2019-03-27 17:37 | disposition home or self-care (01) | DRG 351 ==
LOC: ER 03:44 → 5WST 05:21 → ENRESERV 11:13
PROVIDERS: ADMIT Hospitalist; ATTEND Hospitalist
DX: M77.8 Other enthesopathies, not elsewhere classified (principal); E11.22 Type 2 diabetes mellitus with diabetic chronic kidney disease; I13.0 Hypertensive heart and chronic kidney disease with heart failure and stage 1 through stage 4 chronic kidney disease, or unspecified chronic kidney disease; I50.9 Heart failure, unspecified; E78.00 Pure hypercholesterolemia, unspecified; N18.9 Chronic kidney disease, unspecified; G89.29 Other chronic pain; M19.90 Unspecified osteoarthritis, unspecified site; G43.909 Migraine, unspecified, not intractable, without status migrainosus; F17.210 Nicotine dependence, cigarettes, uncomplicated; R07.9 Chest pain, unspecified; E78.5 Hyperlipidemia, unspecified; Z82.49 Family history of ischemic heart disease and other diseases of the circulatory system; Z79.82 Long term (current) use of aspirin; Z79.899 Other long term (current) drug therapy; Z71.6 Tobacco abuse counseling
CPT/HCPCS: 36415; 71045; 73030; 80061; 82962; 83605; 84484; 93005; 96374; 99285; J2270; J2405

== ENCOUNTER 2019-04-17 14:59 | Inpatient (IN) | payer MEDICAID ==
[~2019-04-17] VITALS: Ht 180.3 cm; Wt 83.0 kg
[~2019-04-17 14:59] MED LIST changes: -CARV12.545 MT; +MULT-1146 MT
[2019-04-17] MEDS ORDERED: SODIUM CHLORIDE 0.9% 1,000 ML IV ONE (15:18)
[2019-04-17] MEDS: ONDANSETRON HCL 4MG/2ML INJ IV STA ×2 (15:18→16:07)
[2019-04-17] MEDS ORDERED: ASPIRIN 81MG TABLET PO ONE (15:30)
[2019-04-17] MEDS ORDERED: NITROGLYCERIN 0.4MG TABLET SL SL PRN (15:30)
[2019-04-17 15:37] LABS: EOSINOPHILS % 2.9 % (0.0-5.0); HEMATOCRIT. 26.8 % (42.0-52.0); HEMOGLOBIN. 8.6 g/dL (14.0-18.0); LYMPHOCYTES % 8.4 % (20.0-50.0); MEAN CORPUSCULAR HEMOGLOBIN 25.9 pg (28.0-32.0); MEAN CORPUSCULAR VOLUME 80.6 fL (80.0-94.0); MONOCYTES % 4.2 % (2.0-8.0); NEUTROPHILS % 83.5 % (40.0-76.0); PLATELET 259 x1000/uL (130-400); RED BLOOD CELL COUNT 3.33 mill/uL (4.7-6.1); RED CELL DISTRIBUTION WIDTH 21.1 % (11.6-14.6)
[2019-04-17 15:39] LABS: CHLORIDE 107 mEq/L (98-107)
[2019-04-17 15:45] LABS: D-DIMER 1.22 mg/L FEU (<0.50); INR 0.9; PARTIAL THROMBOPLASTIN TIME 25.3 sec (23.4-31.0); PROTHROMBIN TIME 9.5 sec (9.6-11.0)
[2019-04-17] MEDS ORDERED: DEXTROSE 50% WATER 50ML SYRINGE IV ONE (17:45)
[2019-04-17] MEDS ORDERED: HYDROCODONE/ACETAMINOPHEN 5/325MG TABLET PO PRN (22:00)
[2019-04-17] MEDS ORDERED: IPRATROPIUM/ALBUTEROL 0.5-3(2.5)MG/3ML NEB INH PRN (22:00)
[2019-04-17] MEDS ORDERED: ACETAMINOPHEN 325MG TABLET PO PRN (22:00)
[2019-04-17] MEDS ORDERED: CLONIDINE 0.1MG TABLET PO PRN (22:00)
[2019-04-17] MEDS ORDERED: ONDANSETRON HCL 4MG/2ML INJ IV ONE (22:15)
[2019-04-17 22:28] VITALS: BP 155/83
[2019-04-17 23:00] VITALS: BP 155/83
[2019-04-17] MEDS ORDERED: FUROSEMIDE 40MG/4ML VIAL IV SCH (23:00)
[2019-04-17] MEDS ORDERED: DEXTROSE 50% WATER 50ML SYRINGE IV PRN (23:45)
[2019-04-18] VITALS: BP 159/80
[2019-04-18] MEDS: CITRIC ACID/SODIUM CITRATE SOLN 15ML UDC PO SCH ×4 (00:04→17:21)
[2019-04-18] MEDS: METOCLOPRAMIDE HCL 10MG/2ML VIAL IV PRN ×2 (00:05→06:13)
[2019-04-18] MEDS: NIFEDIPINE XL 30MG TAB PO SCH ×3 (00:06→17:22)
[2019-04-18 01:44] LABS: BG BASE EXCESS -10.9 mmol/L (-2.0-2.0); BG CARBOXYHEMOGLOBIN 0.2 % (0.5-1.5); BG DEOXYHEMOGLOBIN 6.5 % (0.0-5.0); BG FRACTION INSPIRED OXYGEN 21; BG HCO3 ACT 14.4 mmol/L (22.0-26.0); BG METHEMOGLOBIN 0.3 % (0.0-1.5); BG OXYGEN SATURATION 93.5 % (92.0-98.5); BG PCO2 30.2 mmHg (35.0-45.0); BG PH 7.296 (7.350-7.450); BG PO2 73.5 mmHg (75.0-100.0); BG SAMPLE SITE RIGHT RADIAL; BG TOTAL HEMOGLOBIN 9.7 g/dL (12.0-18.0); BG VENT MODE ROOM AIR
[2019-04-18] MEDS: HYDROCODONE/ACETAMINOPHEN 5/325MG TABLET PO PRN ×4 (02:29→20:30)
[2019-04-18] MEDS: OMEPRAZOLE 20MG CAPSULE EXTENDED RELEASE PO SCH ×2 (02:30→06:45)
[2019-04-18 03:29] LABS: CLARITY URINE CLEAR (CLEAR); COLOR URINE YELLOW (YELLOW); KETONES URINE 1+ (NEGATIVE); LEUKOCYTE ESTERASE URINE NEGATIVE (NEGATIVE); NITRITE URINE NEGATIVE (NEGATIVE); OCCULT BLOOD URINE NEGATIVE (NEGATIVE); PROTEIN URINE 3+ (NEGATIVE); SPECIFIC GRAVITY URINE 1.012 (1.005-1.030); UROBILINOGEN URINE 0.2 E.U./dL (0.2-1.0)
[2019-04-18 04:00] VITALS: BP 152/80
[2019-04-18] MEDS ORDERED: ONDANSETRON HCL 4MG/2ML INJ IV PRN (04:00)
[2019-04-18 04:08] LABS: *AMPHETAMINES SCREEN URINE NEGATIVE (NEGATIVE); *BARBITURATES SCREEN URINE NEGATIVE (NEGATIVE); *BENZODIAZEPINES SCREEN URINE NEGATIVE (NEGATIVE); *COCAINE SCREEN URINE NEGATIVE (NEGATIVE); METHADONE URINE SCREEN NEGATIVE (NEGATIVE); OPIATES URINE SCREEN NEGATIVE (NEGATIVE)
[2019-04-18 04:09] LABS: CANNABINOID URINE SCREEN NEGATIVE (NEGATIVE); PHENCYCLIDINE URINE SCREEN NEGATIVE (NEGATIVE)
[2019-04-18] MEDS: BLOOD SUGAR DIAGNOSTIC STRIP TEST SCH ×4 (06:45→21:00)
[2019-04-18] MEDS ORDERED: SODIUM BICARBONATE 4% (2.4MEQ) 5ML VIAL IV ONE (07:50)
[2019-04-18] MEDS ORDERED: LIDOCAINE HCL 1% 20ML VIAL (Pyxis) INJ ONE (07:51)
[2019-04-18 08:00] VITALS: BP 153/68
[2019-04-18] MEDS: HYDRALAZINE HCL 100MG TABLET PO SCH ×2 (08:42→22:34)
[2019-04-18] MEDS ORDERED: NIFEDIPINE XL 30MG TAB PO SCH (09:00)
[2019-04-18] MEDS: INSULIN LISPRO 100 UNITS/ML SUBCUT SCH ×3 (12:43→21:00)
[2019-04-18 13:00] VITALS: BP 154/89
[2019-04-18 16:00] VITALS: BP 145/92
[2019-04-18 16:07] LABS: HEMATOCRIT. 29.2 % (42.0-52.0); HEMOGLOBIN. 9.5 g/dL (14.0-18.0); MEAN CORPUSCULAR HEMOGLOBIN 26.1 pg (28.0-32.0); MEAN CORPUSCULAR VOLUME 80.2 fL (80.0-94.0); MEAN PLATELET VOLUME 8.2 fl (7.4-10.4); PLATELET 255 x1000/uL (130-400); RED BLOOD CELL COUNT 3.64 mill/uL (4.7-6.1); RED CELL DISTRIBUTION WIDTH 21.1 % (11.6-14.6)
[2019-04-18 16:38] LABS: PLATELET ESTIMATE NORMAL
[2019-04-18 20:00] VITALS: BP 156/91
[2019-04-18] MEDS: ZOLPIDEM TARTRATE 5MG TABLET PO PRN (22:34)
[2019-04-19] VITALS: BP 138/99
[2019-04-19] MEDS: HYDROCODONE/ACETAMINOPHEN 5/325MG TABLET PO PRN ×4 (02:15→21:55)
[2019-04-19] MEDS ORDERED: FERR325T6 MT (02:38)
[2019-04-19] MEDS ORDERED: OMEP20CA5 MT (02:38)
[2019-04-19] MEDS ORDERED: CLON-457 PO (02:38)
[2019-04-19] MEDS ORDERED: NEPVIT MT (02:38)
[2019-04-19] MEDS ORDERED: NIFE20CA MT (02:38)
[2019-04-19] MEDS ORDERED: DOXA2TAB2 MT (02:38)
[2019-04-19 04:00] VITALS: BP 159/89
[2019-04-19] MEDS: INSULIN LISPRO 100 UNITS/ML SUBCUT SCH ×4 (05:23→21:00)
[2019-04-19] MEDS: BLOOD SUGAR DIAGNOSTIC STRIP TEST SCH ×4 (05:23→21:00)
[2019-04-19 05:37] LABS: BASOPHILS % 0.4 % (0.0-2.0); EOSINOPHILS % 2.1 % (0.0-5.0); HEMATOCRIT. 27.6 % (42.0-52.0); HEMOGLOBIN. 9.2 g/dL (14.0-18.0); LYMPHOCYTES % 8.7 % (20.0-50.0); MEAN CORPUSCULAR HEMOGLOBIN 26.1 pg (28.0-32.0); MEAN CORPUSCULAR VOLUME 78.3 fL (80.0-94.0); MONOCYTES % 7.6 % (2.0-8.0); NEUTROPHILS % 81.2 % (40.0-76.0); PLATELET 230 x1000/uL (130-400); RED BLOOD CELL COUNT 3.53 mill/uL (4.7-6.1); RED CELL DISTRIBUTION WIDTH 21.4 % (11.6-14.6)
[2019-04-19 05:40] LABS: CHLORIDE 103 mEq/L (98-107)
[2019-04-19] MEDS: OMEPRAZOLE 20MG CAPSULE EXTENDED RELEASE PO SCH (06:20)
[2019-04-19 08:00] VITALS: BP 155/92
[2019-04-19] MEDS: CITRIC ACID/SODIUM CITRATE SOLN 15ML UDC PO SCH ×3 (08:02→16:21)
[2019-04-19] MEDS: HYDRALAZINE HCL 100MG TABLET PO SCH ×2 (08:02→21:39)
[2019-04-19] MEDS: NIFEDIPINE XL 30MG TAB PO SCH ×2 (08:02→16:21)
[2019-04-19 11:55] VITALS: BP 152/90
[2019-04-19] MEDS ORDERED: COR12 PO (14:51)
[2019-04-19] MEDS ORDERED: NIFE90TA34 PO (14:55)
[2019-04-19] MEDS ORDERED: FERR325T6 PO (14:56)
[2019-04-19] MEDS ORDERED: DOCU-150 PO (14:57)
[2019-04-19] MEDS ORDERED: TRAM50TA3 PO (15:01)
[2019-04-19 16:00] VITALS: BP 131/80
[2019-04-19 20:00] VITALS: BP 123/71
[2019-04-19] MEDS: MIRTAZAPINE 30MG TABLET PO SCH (21:38)
[2019-04-19] MEDS: ZOLPIDEM TARTRATE 5MG TABLET PO PRN (23:20)
[2019-04-20] VITALS (7 sets, daily range): BP systolic 128–167; BP diastolic 85–93
[2019-04-20] MEDS: BLOOD SUGAR DIAGNOSTIC STRIP TEST SCH ×4 (06:36→20:58)
[2019-04-20] MEDS: INSULIN LISPRO 100 UNITS/ML SUBCUT SCH ×4 (06:36→20:58)
[2019-04-20] MEDS: OMEPRAZOLE 20MG CAPSULE EXTENDED RELEASE PO SCH (06:37)
[2019-04-20] MEDS: CITRIC ACID/SODIUM CITRATE SOLN 15ML UDC PO SCH ×2 (08:28→12:40)
[2019-04-20] MEDS: NIFEDIPINE XL 30MG TAB PO SCH (08:29)
[2019-04-20] MEDS: HYDRALAZINE HCL 100MG TABLET PO SCH ×2 (08:29→21:09)
[2019-04-20 08:53] LABS: BASOPHILS % 0.9 % (0.0-2.0); EOSINOPHILS % 3.2 % (0.0-5.0); HEMATOCRIT. 28.6 % (42.0-52.0); HEMOGLOBIN. 9.5 g/dL (14.0-18.0); LYMPHOCYTES % 10.9 % (20.0-50.0); MEAN CORPUSCULAR HEMOGLOBIN 26.1 pg (28.0-32.0); MEAN CORPUSCULAR VOLUME 78.3 fL (80.0-94.0); MEAN PLATELET VOLUME 8.5 fl (7.4-10.4); MONOCYTES % 7.4 % (2.0-8.0); NEUTROPHILS % 77.6 % (40.0-76.0); PLATELET 226 x1000/uL (130-400); RED BLOOD CELL COUNT 3.66 mill/uL (4.7-6.1); RED CELL DISTRIBUTION WIDTH 21.3 % (11.6-14.6)
[2019-04-20 09:23] LABS: PHOSPHORUS 4.3 mg/dL (2.5-4.9)
[2019-04-20] MEDS: HYDROCODONE/ACETAMINOPHEN 5/325MG TABLET PO PRN ×2 (09:25→21:14)
[2019-04-20] MEDS: GUAIFENESIN-DM 200MG-20MG/10ML UDC PO PRN ×2 (16:03→23:53)
[2019-04-20] MEDS: MIRTAZAPINE 30MG TABLET PO SCH (21:00)
[2019-04-20] MEDS: NIFEDIPINE XL 60MG TAB PO SCH (21:10)
[2019-04-21 04:00] VITALS: BP 140/85
[2019-04-21] MEDS: GUAIFENESIN-DM 200MG-20MG/10ML UDC PO PRN ×2 (05:20→09:23)
[2019-04-21 06:01] LABS: BASOPHILS % 0.5 % (0.0-2.0); EOSINOPHILS % 3.5 % (0.0-5.0); HEMATOCRIT. 26.8 % (42.0-52.0); LYMPHOCYTES % 12.2 % (20.0-50.0); MEAN CORPUSCULAR HEMOGLOBIN 26.4 pg (28.0-32.0); MEAN CORPUSCULAR VOLUME 78.7 fL (80.0-94.0); MEAN PLATELET VOLUME 8.7 fl (7.4-10.4); MONOCYTES % 8.8 % (2.0-8.0); PLATELET 185 x1000/uL (130-400); RED BLOOD CELL COUNT 3.41 mill/uL (4.7-6.1); RED CELL DISTRIBUTION WIDTH 21.4 % (11.6-14.6)
[2019-04-21 06:17] LABS: PHOSPHORUS 3.4 mg/dL (2.5-4.9)
[2019-04-21] MEDS: INSULIN LISPRO 100 UNITS/ML SUBCUT SCH ×4 (06:24→21:00)
[2019-04-21] MEDS: BLOOD SUGAR DIAGNOSTIC STRIP TEST SCH ×4 (06:24→21:47)
[2019-04-21] MEDS: OMEPRAZOLE 20MG CAPSULE EXTENDED RELEASE PO SCH (06:42)
[2019-04-21 08:00] VITALS: BP 148/79
[2019-04-21] MEDS: HYDRALAZINE HCL 100MG TABLET PO SCH ×2 (09:23→21:57)
[2019-04-21] MEDS: NIFEDIPINE XL 60MG TAB PO SCH ×2 (09:23→21:57)
[2019-04-21 12:00] VITALS: BP 124/85
[2019-04-21] MEDS: HYDROCODONE/ACETAMINOPHEN 5/325MG TABLET PO PRN ×2 (13:09→23:48)
[2019-04-21 16:00] VITALS: BP 140/86
[2019-04-21] MEDS ORDERED: DOCUSATE SODIUM 100MG CAPSULE PO PRN (16:00)
[2019-04-21 16:03] LABS: HEPATITIS B SURFACE ANTIGEN NEGATIVE
[2019-04-21 16:33] LABS: HEPATITIS A AB IGM NEGATIVE (NEGATIVE)
[2019-04-21] MEDS ORDERED: DIPHENHYDRAMINE 50MG CAPSULE PO NR (21:00)
[2019-04-21] MEDS: MIRTAZAPINE 30MG TABLET PO SCH (21:58)
[2019-04-22] VITALS (16 sets, daily range): BP systolic 123–161; BP diastolic 73–94
[2019-04-22] MEDS: GUAIFENESIN-DM 200MG-20MG/10ML UDC PO PRN (01:30)
[2019-04-22] MEDS: OMEPRAZOLE 20MG CAPSULE EXTENDED RELEASE PO SCH (06:26)
[2019-04-22 07:02] LABS: BASOPHILS % 0.5 % (0.0-2.0); EOSINOPHILS % 4.3 % (0.0-5.0); HEMATOCRIT. 26.6 % (42.0-52.0); HEMOGLOBIN. 8.9 g/dL (14.0-18.0); LYMPHOCYTES % 10.2 % (20.0-50.0); MEAN CORPUSCULAR HEMOGLOBIN 26.3 pg (28.0-32.0); MEAN CORPUSCULAR VOLUME 78.9 fL (80.0-94.0); MEAN PLATELET VOLUME 8.2 fl (7.4-10.4); MONOCYTES % 8.7 % (2.0-8.0); NEUTROPHILS % 76.3 % (40.0-76.0); PLATELET 154 x1000/uL (130-400); RED BLOOD CELL COUNT 3.37 mill/uL (4.7-6.1); RED CELL DISTRIBUTION WIDTH 22.1 % (11.6-14.6)
[2019-04-22] MEDS: INSULIN LISPRO 100 UNITS/ML SUBCUT SCH ×4 (07:24→21:00)
[2019-04-22] MEDS: BLOOD SUGAR DIAGNOSTIC STRIP TEST SCH ×4 (07:24→21:20)
[2019-04-22 08:03] LABS: PHOSPHORUS 4.2 mg/dL (2.5-4.9)
[2019-04-22] MEDS: HYDRALAZINE HCL 100MG TABLET PO SCH ×2 (08:44→21:19)
[2019-04-22] MEDS: NIFEDIPINE XL 60MG TAB PO SCH ×2 (08:45→21:19)
[2019-04-22] MEDS: FERROUS SULFATE 325MG TABLET PO SCH ×2 (08:54→14:56)
[2019-04-22] MEDS: FOLIC ACID/VITAMIN B COMP W-C TABLET PO SCH ×2 (08:54→14:56)
[2019-04-22 10:29] LABS: FOLIC ACID (FOLATE) SERUM >20 ng/mL ng/mL (>5.38)
[2019-04-22 10:40] LABS: VITAMIN B12 SERUM >2000 pg/mL pg/mL (211-911)
[2019-04-22] MEDS: HYDROCODONE/ACETAMINOPHEN 5/325MG TABLET PO PRN ×2 (12:59→21:20)
[2019-04-22] MEDS ORDERED: SODIUM BICARBONATE 4% (2.4MEQ) 5ML VIAL IV ONE (13:19)
[2019-04-22] MEDS ORDERED: LIDOCAINE HCL 1% 20ML VIAL (Pyxis) INJ ONE (13:20)
[2019-04-22] MEDS ORDERED: CEFAZOLIN 1000MG PREMIX 50 ML IV ONE ×2 (13:30)
[2019-04-22] MEDS ORDERED: FENTANYL CITRATE/PF 50MCG/ML 2ML VIAL IV ONE ×2 (13:35)
[2019-04-22] MEDS ORDERED: FENTANYL CITRATE/PF 50MCG/ML 2ML VIAL ONE (13:36)
[2019-04-22] MEDS ORDERED: EPOETIN ALFA 4000UNITS/ML VIAL SUBCUT SCH (21:00)
[2019-04-22] MEDS: MIRTAZAPINE 30MG TABLET PO SCH (21:19)
[2019-04-23] VITALS: BP 140/79
[2019-04-23] MEDS: GUAIFENESIN-DM 200MG-20MG/10ML UDC PO PRN
[2019-04-23 04:00] VITALS: BP 152/87
[2019-04-23 06:27] LABS: BASOPHILS % 0.5 % (0.0-2.0); HEMATOCRIT. 26.4 % (42.0-52.0); HEMOGLOBIN. 8.7 g/dL (14.0-18.0); LYMPHOCYTES % 9.5 % (20.0-50.0); MEAN CORPUSCULAR HEMOGLOBIN 26.2 pg (28.0-32.0); MEAN CORPUSCULAR VOLUME 79.2 fL (80.0-94.0); MEAN PLATELET VOLUME 8.7 fl (7.4-10.4); MONOCYTES % 10.6 % (2.0-8.0); NEUTROPHILS % 76.4 % (40.0-76.0); PLATELET 152 x1000/uL (130-400); RED BLOOD CELL COUNT 3.33 mill/uL (4.7-6.1)
[2019-04-23] MEDS: BLOOD SUGAR DIAGNOSTIC STRIP TEST SCH ×2 (06:35→12:10)
[2019-04-23] MEDS: INSULIN LISPRO 100 UNITS/ML SUBCUT SCH ×2 (06:35→12:40)
[2019-04-23] MEDS: OMEPRAZOLE 20MG CAPSULE EXTENDED RELEASE PO SCH (06:35)
[2019-04-23 08:00] VITALS: BP 160/81
[2019-04-23] MEDS ORDERED: HYDROCODONE/ACETAMINOPHEN 5/325MG TABLET PO PRN (08:45)
[2019-04-23] MEDS: HYDRALAZINE HCL 100MG TABLET PO SCH (09:03)
[2019-04-23] MEDS: NIFEDIPINE XL 60MG TAB PO SCH (09:03)
[2019-04-23] MEDS: FOLIC ACID/VITAMIN B COMP W-C TABLET PO SCH (09:03)
[2019-04-23] MEDS: FERROUS SULFATE 325MG TABLET PO SCH (09:03)
[2019-04-23 12:00] VITALS: BP 152/90
[2019-04-23 13:04] VITALS: BP 152/90
== END 2019-04-23 16:03 | disposition home or self-care (01) | DRG 241 ==
LOC: ER 14:59 → 5WST 17:16 → EDBEDREQ 17:17 → ENRESERV 21:10 → 8WST 04-18 11:55
PROVIDERS: ADMIT Internal Medicine; ATTEND Internal Medicine
PROC: 02PY33Z Removal of Infusion Device from Great Vessel, Percutaneous Approach (ICD-10-PCS; 2019-04-18)
PROC: 02HV33Z Insertion of Infusion Device into Superior Vena Cava, Percutaneous Approach (ICD-10-PCS; 2019-04-18)
PROC: B5181ZA Fluoroscopy of Superior Vena Cava using Low Osmolar Contrast, Guidance (ICD-10-PCS; 2019-04-18)
PROC: B548ZZA Ultrasonography of Superior Vena Cava, Guidance (ICD-10-PCS; 2019-04-18)
PROC: 5A1D70Z Performance of Urinary Filtration, Intermittent, Less than 6 Hours Per Day (ICD-10-PCS; 2019-04-18)
PROC: 5A1D70Z Performance of Urinary Filtration, Intermittent, Less than 6 Hours Per Day (ICD-10-PCS; 2019-04-20)
PROC: 0JH63XZ Insertion of Tunneled Vascular Access Device into Chest Subcutaneous Tissue and Fascia, Percutaneous Approach (ICD-10-PCS; principal; 2019-04-22)
PROC: B5181ZA Fluoroscopy of Superior Vena Cava using Low Osmolar Contrast, Guidance (ICD-10-PCS; 2019-04-22)
PROC: 5A1D70Z Performance of Urinary Filtration, Intermittent, Less than 6 Hours Per Day (ICD-10-PCS; 2019-04-22)
DX: K29.60 Other gastritis without bleeding (principal); I13.2 Hypertensive heart and chronic kidney disease with heart failure and with stage 5 chronic kidney disease, or end stage renal disease; E11.22 Type 2 diabetes mellitus with diabetic chronic kidney disease; E11.40 Type 2 diabetes mellitus with diabetic neuropathy, unspecified; R07.89 Other chest pain; N18.6 End stage renal disease; D63.8 Anemia in other chronic diseases classified elsewhere; F17.200 Nicotine dependence, unspecified, uncomplicated; E11.649 Type 2 diabetes mellitus with hypoglycemia without coma; E78.00 Pure hypercholesterolemia, unspecified; E78.5 Hyperlipidemia, unspecified; D63.1 Anemia in chronic kidney disease; F10.20 Alcohol dependence, uncomplicated; R74.0 Nonspecific elevation of levels of transaminase and lactic acid dehydrogenase [LDH]; G47.00 Insomnia, unspecified; F17.210 Nicotine dependence, cigarettes, uncomplicated; F41.9 Anxiety disorder, unspecified; Z99.2 Dependence on renal dialysis; Z82.49 Family history of ischemic heart disease and other diseases of the circulatory system; Z86.73 Personal history of transient ischemic attack (TIA), and cerebral infarction without residual deficits; Z79.4 Long term (current) use of insulin; I25.10 Atherosclerotic heart disease of native coronary artery without angina pectoris
CPT/HCPCS: 36010; 36415; 36558; 36589; 36600; 71045; 75827; 77001; 78582; 80048; 80305; 82375; 82607; 82746; 82805; 82962; 83735; 83880; 84100; 84484; 85379; 86705; 86709; 86803; 87340; 93005; 93970; 96361; 96374; 99152; 99153; 99285; A9558; C1725; C1750; C1752; C1769; C1887; J0690; J0885; J1642; J1815; J1940; J2405; J2765; J3010; J3490; J7030; Q0163; G0500

== ENCOUNTER 2019-07-02 06:17 | Emergency (ER) | payer MEDICAID ==
[~2019-07-02] VITALS: Ht 182.9 cm; Wt 87.0 kg
[~2019-07-02 06:17] MED LIST changes: +COR12 PO; -DOCU-138 PO; +DOCU-150 PO; +DOXA2TAB2 MT; +FERR325T6 PO; -FURO40TA5 PO; -MULT-1146 MT; -NIFE30TA83 PO; +NIFE90TA34 PO; +OMEP20CA5 MT; -PANT40TA4 PO; -PREG75CA PO; +TRAM50TA3 PO
[2019-07-02] MEDS ORDERED: LIDOCAINE 5% PATCH TOP STA (07:36)
[2019-07-02] MEDS ORDERED: HYDROCODONE/ACETAMINOPHEN 5/325MG TABLET PO STA (07:36)
[2019-07-02 07:47] LABS: BASOPHILS % 0.6 % (0.0-2.0); EOSINOPHILS % 1.1 % (0.0-5.0); HEMATOCRIT. 35.7 % (42.0-52.0); HEMOGLOBIN. 11.8 g/dL (14.0-18.0); LYMPHOCYTES % 9.2 % (20.0-50.0); MEAN CORPUSCULAR HEMOGLOBIN 29.9 pg (28.0-32.0); MEAN CORPUSCULAR VOLUME 90.7 fL (80.0-94.0); MEAN PLATELET VOLUME 7.6 fl (7.4-10.4); MONOCYTES % 5.1 % (2.0-8.0); PLATELET 231 x1000/uL (130-400); RED BLOOD CELL COUNT 3.93 mill/uL (4.7-6.1); RED CELL DISTRIBUTION WIDTH 19.4 % (11.6-14.6)
[2019-07-02 08:00] LABS: CHLORIDE 108 mEq/L (98-107)
[2019-07-02 11:47] VITALS: BP 178/80
== END 2019-07-02 11:50 | disposition home or self-care (01) ==
LOC: ER 06:17
DX: M25.512 Pain in left shoulder (principal); E11.9 Type 2 diabetes mellitus without complications; I11.0 Hypertensive heart disease with heart failure; I50.9 Heart failure, unspecified; E78.00 Pure hypercholesterolemia, unspecified; Z79.899 Other long term (current) drug therapy; Z79.82 Long term (current) use of aspirin
CPT/HCPCS: 36415; 71045; 73030; 80053; 84484; 85025; 93005; 99284; Z7610